=== PATIENT | female | born 1960 | race Caucasian/White ===

== ENCOUNTER → 2020-05-05 15:51 | Outpatient (BNVA) | payer MEDICARE, BC, SELFPAY | PROVIDERS: PCP Family Medicine; Visit Provider Emergency Medicine | DX: J06.9 Acute upper respiratory infection, unspecified (principal); J40 Bronchitis, not specified as acute or chronic; J45.901 Unspecified asthma with (acute) exacerbation; Z76.0 Encounter for issue of repeat prescription; G47.00 Insomnia, unspecified; J02.9 Acute pharyngitis, unspecified; R68.89 Other general symptoms and signs | CPT/HCPCS: 87071; 87400; 87635; 87880 ==

== ENCOUNTER → 2020-05-30 09:24 | Outpatient (BNVA) | payer MEDICARE, BC, SELFPAY | PROVIDERS: PCP Family Medicine; Referring Provider Family Medicine; Visit Provider Anesthesiology Pain Medicine | DX: M51.36 Other intervertebral disc degeneration, lumbar region (principal); M47.816 Spondylosis without myelopathy or radiculopathy, lumbar region; G90.50 Complex regional pain syndrome I, unspecified; M54.9 Dorsalgia, unspecified; Z79.891 Long term (current) use of opiate analgesic | CPT/HCPCS: 99205 ==

== ENCOUNTER → 2020-05-31 10:03 | Outpatient (BNVA) | payer MEDICARE, BC, SELFPAY | PROVIDERS: PCP Family Medicine; Visit Provider Family Medicine | DX: E03.9 Hypothyroidism, unspecified (principal); N18.30 Chronic kidney disease, stage 3 unspecified; Z13.220 Encounter for screening for lipoid disorders; Z13.6 Encounter for screening for cardiovascular disorders; F51.04 Psychophysiologic insomnia; F32.9 Major depressive disorder, single episode, unspecified; R56.9 Unspecified convulsions; K21.9 Gastro-esophageal reflux disease without esophagitis; G47.33 Obstructive sleep apnea (adult) (pediatric) | CPT/HCPCS: 80053; 80061; 84443; 85025 ==

== ENCOUNTER → 2020-07-04 08:53 | Outpatient (BNVA) | payer MEDICARE, BC, SELFPAY | PROVIDERS: PCP Family Medicine; Visit Provider Anesthesiology Pain Medicine | DX: M54.9 Dorsalgia, unspecified (principal); G90.50 Complex regional pain syndrome I, unspecified; M51.36 Other intervertebral disc degeneration, lumbar region; M47.816 Spondylosis without myelopathy or radiculopathy, lumbar region | CPT/HCPCS: 99213 ==

== ENCOUNTER → 2020-08-08 17:55 | Outpatient (BNVA) | payer MEDICARE, SELFPAY | PROVIDERS: PCP Family Medicine; Visit Provider Family Medicine | DX: F51.04 Psychophysiologic insomnia (principal); G90.50 Complex regional pain syndrome I, unspecified; N18.31 Chronic kidney disease, stage 3a; R10.11 Right upper quadrant pain; R56.9 Unspecified convulsions | CPT/HCPCS: 80053; 80069; 81003; 82542; 82652; 83550; 85025 ==

== ENCOUNTER → 2020-08-14 09:02 | Outpatient (BNVA) | payer MEDICARE, SELFPAY | PROVIDERS: PCP Family Medicine; Visit Provider Anesthesiology Pain Medicine | DX: G90.50 Complex regional pain syndrome I, unspecified (principal); M47.816 Spondylosis without myelopathy or radiculopathy, lumbar region; M51.36 Other intervertebral disc degeneration, lumbar region; M54.9 Dorsalgia, unspecified; Z79.891 Long term (current) use of opiate analgesic | CPT/HCPCS: 99214 ==

== ENCOUNTER → 2020-09-04 13:44 | Outpatient (BNVA) | payer MEDICARE, SELFPAY | PROVIDERS: PCP Family Medicine; Visit Provider Anesthesiology Pain Medicine | DX: M47.816 Spondylosis without myelopathy or radiculopathy, lumbar region (principal); M54.9 Dorsalgia, unspecified; F17.290 Nicotine dependence, other tobacco product, uncomplicated | CPT/HCPCS: 64493; 64494; 64495; J3490 ==

== ENCOUNTER → 2020-09-19 10:15 | Outpatient (BNVA) | payer MEDICARE, SELFPAY | PROVIDERS: PCP Family Medicine; Visit Provider Anesthesiology Pain Medicine | DX: M54.9 Dorsalgia, unspecified (principal); G90.50 Complex regional pain syndrome I, unspecified; M51.36 Other intervertebral disc degeneration, lumbar region; M47.816 Spondylosis without myelopathy or radiculopathy, lumbar region; F17.290 Nicotine dependence, other tobacco product, uncomplicated; Z79.891 Long term (current) use of opiate analgesic | CPT/HCPCS: 99214 ==

== ENCOUNTER → 2020-09-26 12:54 | Outpatient (BNVA) | payer MEDICARE, SELFPAY | PROVIDERS: PCP Family Medicine; Visit Provider Anesthesiology Pain Medicine | DX: M47.816 Spondylosis without myelopathy or radiculopathy, lumbar region (principal); M54.9 Dorsalgia, unspecified; F17.290 Nicotine dependence, other tobacco product, uncomplicated; Z79.891 Long term (current) use of opiate analgesic | CPT/HCPCS: 64493; 64494; 64495; J3490 ==

== ENCOUNTER → 2020-10-10 08:35 | Outpatient (BNVA) | payer MEDICARE, SELFPAY | PROVIDERS: PCP Family Medicine; Visit Provider Anesthesiology Pain Medicine | DX: M54.9 Dorsalgia, unspecified (principal); G90.50 Complex regional pain syndrome I, unspecified; M51.36 Other intervertebral disc degeneration, lumbar region; M47.816 Spondylosis without myelopathy or radiculopathy, lumbar region; F17.290 Nicotine dependence, other tobacco product, uncomplicated; Z79.891 Long term (current) use of opiate analgesic | CPT/HCPCS: 99214 ==

== ENCOUNTER → 2020-11-01 14:10 | Outpatient (BNVA) | payer MEDICARE, SELFPAY | PROVIDERS: PCP Family Medicine; Visit Provider Anesthesiology Pain Medicine | DX: M47.816 Spondylosis without myelopathy or radiculopathy, lumbar region (principal); M54.9 Dorsalgia, unspecified; F17.290 Nicotine dependence, other tobacco product, uncomplicated | CPT/HCPCS: 64635; 64636; J1030 ==

== ENCOUNTER → 2020-11-08 11:21 | Outpatient (BNVA) | payer MEDICARE, SELFPAY | PROVIDERS: PCP Family Medicine; Visit Provider Family Medicine | DX: E03.9 Hypothyroidism, unspecified (principal); M16.0 Bilateral primary osteoarthritis of hip | CPT/HCPCS: 84443 ==

== ENCOUNTER → 2020-11-15 14:20 | Outpatient (BNVA) | payer MEDICARE, SELFPAY | PROVIDERS: PCP Family Medicine; Visit Provider Anesthesiology Pain Medicine | DX: M47.816 Spondylosis without myelopathy or radiculopathy, lumbar region (principal); M54.9 Dorsalgia, unspecified; F17.290 Nicotine dependence, other tobacco product, uncomplicated; Z79.891 Long term (current) use of opiate analgesic | CPT/HCPCS: 64635; 64636 ==

== ENCOUNTER → 2021-02-12 14:00 | Outpatient (BNVA) | payer MEDICARE, SELFPAY | PROVIDERS: PCP Family Medicine; Visit Provider Family Medicine | DX: F51.04 Psychophysiologic insomnia (principal); F32.9 Major depressive disorder, single episode, unspecified; R56.9 Unspecified convulsions; K21.9 Gastro-esophageal reflux disease without esophagitis; N18.30 Chronic kidney disease, stage 3 unspecified; D64.9 Anemia, unspecified; G90.50 Complex regional pain syndrome I, unspecified; J44.9 Chronic obstructive pulmonary disease, unspecified; E03.9 Hypothyroidism, unspecified; Z13.6 Encounter for screening for cardiovascular disorders | CPT/HCPCS: 80053; 80061; 84439; 84443; 84481; 85025 ==

== ENCOUNTER → 2021-04-19 09:27 | Outpatient (BNVA) | payer MEDICARE, SELFPAY | PROVIDERS: PCP Family Medicine; Visit Provider Family Medicine | DX: Z12.39 Encounter for other screening for malignant neoplasm of breast (principal); M25.572 Pain in left ankle and joints of left foot; M16.0 Bilateral primary osteoarthritis of hip; N18.30 Chronic kidney disease, stage 3 unspecified; F51.04 Psychophysiologic insomnia; G90.50 Complex regional pain syndrome I, unspecified; E03.9 Hypothyroidism, unspecified | CPT/HCPCS: 80069; 82043; 82310; 83970; 84439; 84443; 84481; 85025 ==

== ENCOUNTER 2021-05-04 13:26 | Outpatient (CLI) | payer MEDICARE, SELFPAY ==
--- NOTE | 2021-05-04 13:37 | XR_ITS ---
WS: [email or web address] Left ankle, 3 views, 05/04/2021 Clinical Data: M25.572 - Pain in left ankle and joints of left foot Comparison: None. Findings: There is osteoarthritic change of the left ankle with narrowing and sclerosis of the joint space. The re is osteoarthritic change of the medial and lateral malleolar adjacent to the talus. The patient is had a fusion of the tarsal bones with multiple orthopedic screws. No recent fractures are seen. There is a 2.2 cm calcification posterior to the ankle mortise. There is soft tissue swelling over th e medial and lateral malleoli. XR/XR ankle LT min 3V* [id number] Impression: 1. Severe osteoarthritis of the left ankle. 2. Complex orthopedic fusion with multiple screws of the tarsal bones. 3. Soft tissue swelling over the medial and lateral malleolus.
--- NOTE | 2021-05-04 13:37 | XR_ITS ---
WS: [email or web address] Bilateral hips, AP and frog leg views, 05/04/2021 Clinical Data: M16.0 - Bilateral primary osteoarthritis of hip Comparison: None. Findings: Right hip: There is a prominent acetabular lip. No narrowing, sclerosis or erosion of the right hip is seen. The re is an intramedullary cary seen in the proximal right femur fixed with a transverse pin. No fracture s or dislocations are seen. The adjacent pelvis shows no abnormalities. The soft tissues are normal. Left hip: There is a prominent acetabular lip. No narrowing, sclerosis or erosion of the left hip is seen. Ther e are no fractures or dislocations. The adjacent left pelvis is unremarkable. The soft tissues are no [facility] XR/XR hip BI 3-4V wo/w pel [id number] Impression: Moderate bilateral osteoarthritic acetabular lipping.
== END 2021-05-04 13:27 | disposition home or self-care (01) ==
PROVIDERS: PCP Family Medicine; Visit Provider Family Medicine
DX: M16.0 Bilateral primary osteoarthritis of hip (principal); M79.89 Other specified soft tissue disorders; M19.072 Primary osteoarthritis, left ankle and foot
CPT/HCPCS: 73522; 73610

== ENCOUNTER → 2021-06-26 14:17 | Outpatient (BNVA) | payer MEDICARE, SELFPAY | PROVIDERS: PCP Family Medicine; Referring Provider Family Medicine; Visit Provider Podiatrist Foot & Ankle Surgery | DX: M25.572 Pain in left ankle and joints of left foot (principal); M19.272 Secondary osteoarthritis, left ankle and foot; Z98.1 Arthrodesis status | CPT/HCPCS: 73610 ==

== ENCOUNTER → 2021-07-05 08:44 | Outpatient (BNVA) | payer MEDICARE, SELFPAY | PROVIDERS: PCP Family Medicine; Visit Provider Anesthesiology Pain Medicine | DX: M51.36 Other intervertebral disc degeneration, lumbar region (principal); M47.816 Spondylosis without myelopathy or radiculopathy, lumbar region; M25.551 Pain in right hip; M25.572 Pain in left ankle and joints of left foot; U07.0 Vaping-related disorder | CPT/HCPCS: 99214 ==

== ENCOUNTER 2021-08-13 12:46 | Outpatient (CLI) | payer MEDICARE, SELFPAY ==
--- NOTE | 2021-08-13 13:30 | MM_ITS ---
WS: [email or web address] BILATERAL SCREENING DIGITAL MAMMOGRAM WITH CAD HISTORY: Screening exam. COMPARISON: 10/07/2018, 07/29/2017 Bilateral CC and MLO views submitted. Computer aided detection analyzed. Breast composition: Scattered nodules and calcifications are stable. No suspicious calcifications. No mass. No suspicious masses, microcalcifications or architectural distortion. Well-circumscribed dege nerating fibroadenoma in the central RIGHT breast. MM/[place] [id number] IMPRESSION: BI-RADS: 2-Benign FOLLOW UP: 1 Year Follow-up
== END 2021-08-13 12:47 | disposition home or self-care (01) ==
LOC: RADSHAW 12:53
PROVIDERS: PCP Family Medicine; Visit Provider Family Medicine
DX: Z12.31 Encounter for screening mammogram for malignant neoplasm of breast (principal)
CPT/HCPCS: 77067

== ENCOUNTER 2021-09-03 14:12 | Outpatient (CLI) | payer MEDICARE, SELFPAY ==
--- NOTE | 2021-09-03 14:18 | XR_ITS ---
WS: [email or web address] SCREENING DEXA SCAN mobintent CLINICAL INFORMATION: Z13.820 - Encounter for screening for osteoporosis COMPARISON: None. FINDINGS: The L1-L4 bone mineral density measures 1.345 g/cm2. This corresponds to a T score score of 1.4 and Z score of 1.5. Left femoral neck bone mineral density measures 0.840 g/cm2. This corresponds to a T score of -1.3 an d Z score of -1.2. Right femoral neck bone mineral density measures 0.833 g/cm2. This corresponds to a T score -1.4of an d Z score of -1.3. Mean femoral neck bone mineral density measures 0.836 g/cm2. This corresponds to a T score of -1.4 an d Z score of -1.2. XR/XR DEXA axial skeleton* [id number] IMPRESSION: Osteopenia in the femoral necks. Normal bone mineralization in the lumbar spine likely spuriously elevated due to endplate sclerosis. Patient's FRAX calculated 10 year probability for major osteoporotic fracture i s 9.8 % and osteoporotic hip fracture is 0.6%.
== END 2021-09-03 14:13 | disposition home or self-care (01) ==
LOC: RAD 14:16
PROVIDERS: PCP Family Medicine; Visit Provider Family Medicine
DX: Z13.820 Encounter for screening for osteoporosis (principal); Z78.0 Asymptomatic menopausal state; M85.88 Other specified disorders of bone density and structure, other site
CPT/HCPCS: 77080

== ENCOUNTER 2021-09-20 10:50 | Outpatient (CLI) | payer MEDICARE, SELFPAY ==
--- NOTE | 2021-09-20 11:01 | US_ITS ---
WS: [email or web address] RENAL ULTRASOUND HISTORY: PARTIAL NEPHRECTOMY COMPARISON: None available. TECHNIQUE: 2-D and color Doppler imaging of the kidney submitted. Right kidney: 9.2 cm x 4.6 cm x 5.4 cm. Poorly visualized due to body habitus. No mass or hydronephrosis identified. No cortical thinning. Left kidney: 10.3 cm x 4.0 cm x 4.1 cm. Limited by body habitus. No abnormality detected. No hydronephrosis. No mass. Aorta: Not imaged. Urinary Bladder: Normal distention. US/US renal BI* [id number] IMPRESSION: 1. Technically limited evaluation of the kidneys due to body habitus. 2. No hydronephrosis or mass identified.
== END 2021-09-20 10:51 | disposition home or self-care (01) ==
PROVIDERS: PCP Family Medicine; Visit Provider Nurse Practitioner Family
DX: Z90.5 Acquired absence of kidney (principal)
CPT/HCPCS: 76770

== ENCOUNTER → 2021-10-10 15:21 | Outpatient (BNVA) | payer MEDICARE, SELFPAY | PROVIDERS: PCP Family Medicine; Visit Provider Family Medicine | DX: M85.80 Other specified disorders of bone density and structure, unspecified site (principal); E03.9 Hypothyroidism, unspecified; Z13.1 Encounter for screening for diabetes mellitus; R73.9 Hyperglycemia, unspecified; N18.30 Chronic kidney disease, stage 3 unspecified | CPT/HCPCS: 80048; 82652; 83036; 84439; 84443; 84481 ==

== ENCOUNTER → 2022-01-09 13:52 | Outpatient (BNVA) | payer MEDICARE, SELFPAY | PROVIDERS: PCP Family Medicine; Visit Provider Family Medicine | DX: E03.9 Hypothyroidism, unspecified (principal); N18.30 Chronic kidney disease, stage 3 unspecified | CPT/HCPCS: 80048; 84439; 84443; 84481 ==

== ENCOUNTER → 2022-02-20 09:12 | Outpatient (BNVA) | payer MEDICARE, SELFPAY | PROVIDERS: PCP Family Medicine; Visit Provider Family Medicine | DX: G90.50 Complex regional pain syndrome I, unspecified (principal); N18.30 Chronic kidney disease, stage 3 unspecified; J44.9 Chronic obstructive pulmonary disease, unspecified; E03.9 Hypothyroidism, unspecified; F51.04 Psychophysiologic insomnia; D64.9 Anemia, unspecified; R56.9 Unspecified convulsions; K21.9 Gastro-esophageal reflux disease without esophagitis; G47.33 Obstructive sleep apnea (adult) (pediatric); G47.10 Hypersomnia, unspecified; F33.0 Major depressive disorder, recurrent, mild; M51.36 Other intervertebral disc degeneration, lumbar region; M47.816 Spondylosis without myelopathy or radiculopathy, lumbar region | CPT/HCPCS: 80048; 84443; 85025 ==

== ENCOUNTER → 2022-02-27 09:23 | Outpatient (BNVA) | payer MEDICARE, SELFPAY | PROVIDERS: PCP Family Medicine; Visit Provider Anesthesiology Pain Medicine | DX: M25.551 Pain in right hip (principal); F17.290 Nicotine dependence, other tobacco product, uncomplicated; G90.50 Complex regional pain syndrome I, unspecified; M51.36 Other intervertebral disc degeneration, lumbar region; M47.816 Spondylosis without myelopathy or radiculopathy, lumbar region | CPT/HCPCS: 99214 ==

== ENCOUNTER 2022-03-28 06:00 | Outpatient (RCR) | payer MEDICARE, SELFPAY | END 2022-04-12 23:59 | disposition home or self-care (01) | LOC: MPT 06:00 | PROVIDERS: PCP Family Medicine; Visit Provider Anesthesiology Pain Medicine | DX: M54.50 Low back pain, unspecified (principal); G89.29 Other chronic pain | CPT/HCPCS: 97110; 97140; 97162 ==

== ENCOUNTER 2022-04-13 06:00 | Outpatient (RCR) | payer MEDICARE, SELFPAY | END 2022-05-13 23:59 | disposition home or self-care (01) | LOC: MPT 06:00 | PROVIDERS: PCP Family Medicine; Visit Provider Anesthesiology Pain Medicine | DX: M54.50 Low back pain, unspecified (principal); G89.29 Other chronic pain | CPT/HCPCS: 97110; 97140 ==

== ENCOUNTER 2022-05-16 13:44 | Outpatient (CLI) | payer MEDICARE, SELFPAY ==
--- NOTE | 2022-05-16 14:00 | CT_ITS ---
WS: [email or web address] CT LUMBAR SPINE TECHNIQUE: Noncontrast CT of the lumbar spine with coronal and sagittal reformatted images. CLINICAL INFORMATION: M54.16 - Radiculopathy, lumbar region COMPARISON: None. DLP: 6.[address] scans at [facility] use at least one of these dose optimization techniques: automated e xposure control; mA and/or kV adjustment per patient size (includes targeted exams where dose is matc hed to clinical indication); or iterative reconstruction. FINDINGS: Mild lumbar curve. No acute compression. Spinal stimulator extending cephalad off the [id number]. Disc space narrowing worse at L2-L3 L3-L4 and L4-L5 with vacuum disc phenomenon. Endplate degenerativ e changes. Osteopenia. L1-L2: Small LEFT foraminal protrusion. Mild LEFT foraminal narrowing. Mild facet arthropathy. RIGHT foramen is patent. L2-L3: Disc space narrowing with endplate degenerative changes. Moderate facet arthropathy. Mild bila teral bony foraminal narrowing LEFT greater than RIGHT. Moderate facet arthropathy. L3-L4: Disc osteophytic ridging. Vacuum disc phenomenon. Moderate facet arthropathy. Mild RIGHT and n o significant LEFT foraminal narrowing. L4-L5: Vacuum disc phenomenon. Mild disc bulging and osteophytic ridging. Advanced facet arthropathy. Shallow LEFT pericentral protrusion. Impingement on traversing LEFT L5 nerve root with mild central canal stenosis. Moderate RIGHT foraminal narrowing with impingement on the exiting RIGHT L4 nerve david t. Mild LEFT foraminal narrowing. L5-S1: Mild disc osteophytic ridging. Spinal canal is patent. Mild LEFT foraminal narrowing. RIGHT fo ramen is patent. Advanced facet arthropathy. Postoperative changes gastric bypass. Prior cholecystectomy. Small LEFT adrenal adenoma. CT/CT lumbar spine wo con* [id number] IMPRESSION: 1. Mild lumbar curve. No acute compression. Disc space narrowing L2-L3 L3-L4 L 4-L5 with vacuum disc phenomenon. 2. Mild central canal stenosis L4-L5 with a tiny LEFT pericentral protrusion. Impingement traversing LEFT L5 nerve root. 3. Moderate RIGHT L4-L5 foraminal narrowing impinges the exiting RIGHT L4 nerv e root. Recommend correlation for RIGHT L4 nerve root symptoms. 4. Mild LEFT L2-L3 and RIGHT L3-L4 foraminal narrowing. 5. Advanced facet arthropathy L4-L5 and L5-S1.
== END 2022-05-16 13:45 | disposition home or self-care (01) ==
PROVIDERS: PCP Family Medicine; Visit Provider Anesthesiology Pain Medicine
DX: M54.16 Radiculopathy, lumbar region (principal); M48.061 Spinal stenosis, lumbar region without neurogenic claudication; M47.816 Spondylosis without myelopathy or radiculopathy, lumbar region; M47.817 Spondylosis without myelopathy or radiculopathy, lumbosacral region; M51.26 Other intervertebral disc displacement, lumbar region
CPT/HCPCS: 72131

== ENCOUNTER → 2022-06-17 09:27 | Outpatient (BNVA) | payer MEDICARE, SELFPAY | PROVIDERS: PCP Family Medicine; Visit Provider Anesthesiology Pain Medicine | DX: M51.36 Other intervertebral disc degeneration, lumbar region (principal); M47.816 Spondylosis without myelopathy or radiculopathy, lumbar region; G90.50 Complex regional pain syndrome I, unspecified; M79.604 Pain in right leg; M79.605 Pain in left leg; M25.559 Pain in unspecified hip | CPT/HCPCS: 99214 ==

== ENCOUNTER 2022-07-26 07:38 | Outpatient (CLI) | payer MEDICARE, SELFPAY ==
--- NOTE | 2022-07-26 08:00 | CT_ITS ---
WS: [email or web address] CT NECK TECHNIQUE: Noncontrast CT of the neck with coronal and sagittal reformatted images. CLINICAL INFORMATION: R22.1 - Localized swelling, mass and lump, neck COMPARISON: None. DLP: 377.[address] scans at [facility] use at least one of these dose optimization techniques: automated e xposure control; mA and/or kV adjustment per patient size (includes targeted exams where dose is matc hed to clinical indication); or iterative reconstruction. FINDINGS: Palpable marker LEFT lower neck. No abnormal mass or lesion deep to the palpable marker. Parotid glands are normal. Submandibular glands are normal. Mastoid air cells are well aerated. Reten tion cyst RIGHT maxillary sinus measuring 1.6 cm. Normal parapharyngeal fat. No evidence of supraglot tic or glottic mass. Subglottic airway is patent. Lung apices are well aerated. Cervical curve. Moder ate spondylitic changes cervical spine. Ossification posterior longitudinal ligament with moderate ce ntral canal stenosis C2-C4. CT/CT neck wo con [id number] IMPRESSION: 1. Palpable marker LEFT lower neck. No underlying abnormalities in this area. 2. Normal salivary glands. 3. No cervical lymphadenopathy. 4. Moderate spondylitic changes cervical spine with ossification posterior rickie gitudinal ligament. Moderate central canal stenosis C2-C4
== END 2022-07-26 07:39 | disposition home or self-care (01) ==
LOC: RAD 07:42
PROVIDERS: PCP Family Medicine; Visit Provider Emergency Medicine
DX: R22.1 Localized swelling, mass and lump, neck (principal); E03.9 Hypothyroidism, unspecified; M48.8X2 Other specified spondylopathies, cervical region; M48.02 Spinal stenosis, cervical region
CPT/HCPCS: 70490

== ENCOUNTER → 2022-08-08 13:21 | Outpatient (BNVA) | payer MEDICARE, SELFPAY | PROVIDERS: PCP Family Medicine; Visit Provider Anesthesiology Pain Medicine | DX: M47.816 Spondylosis without myelopathy or radiculopathy, lumbar region (principal) | CPT/HCPCS: 64635; 64636; J1030 ==

== ENCOUNTER → 2022-08-29 12:50 | Outpatient (BNVA) | payer MEDICARE, SELFPAY | PROVIDERS: PCP Family Medicine; Visit Provider Anesthesiology Pain Medicine | DX: M54.16 Radiculopathy, lumbar region (principal); M47.816 Spondylosis without myelopathy or radiculopathy, lumbar region | CPT/HCPCS: 64635; 64636; J1030 ==

== ENCOUNTER 2022-09-20 11:49 | Outpatient (CLI) | payer MEDICARE, SELFPAY ==
--- NOTE | 2022-09-20 12:02 | MM_ITS ---
WS: [email or web address] BILATERAL 3D TOMOSYNTHESIS DIGITAL SCREENING MAMMOGRAPHY WITH CAD CLINICAL INFORMATION: SCREEN HISTORY: Screening mammogram. No current complaints. COMPARISON: August 13, 2021 TECHNIQUE: Bilateral CC and MLO views. FINDINGS: Scattered fibroglandular densities bilaterally. No suspicious focal mass, asymmetry, calcifications, or architectural distortion. No evidence of malignancy. Stable calcified fibroadenoma RIGHT breast. A few incidental punctate calcifications. MM/[place] [id number] IMPRESSION: BI-RADS: 2-Benign FOLLOW UP: 1 Year Follow-up Recommend return to annual screening mammography.
== END 2022-09-20 11:50 | disposition home or self-care (01) ==
PROVIDERS: PCP Family Medicine; Visit Provider Family Medicine
DX: Z12.31 Encounter for screening mammogram for malignant neoplasm of breast (principal)
CPT/HCPCS: 77063; 77067

== ENCOUNTER → 2022-10-02 14:26 | Outpatient (BNVA) | payer MEDICARE, SELFPAY | PROVIDERS: PCP Family Medicine; Visit Provider Family Medicine | DX: F51.04 Psychophysiologic insomnia (principal); F32.9 Major depressive disorder, single episode, unspecified; E03.9 Hypothyroidism, unspecified; R56.9 Unspecified convulsions; K21.9 Gastro-esophageal reflux disease without esophagitis; G90.50 Complex regional pain syndrome I, unspecified; N18.30 Chronic kidney disease, stage 3 unspecified; Z13.220 Encounter for screening for lipoid disorders; Z13.6 Encounter for screening for cardiovascular disorders; M51.36 Other intervertebral disc degeneration, lumbar region; M54.2 Cervicalgia | CPT/HCPCS: 80053; 80061; 84443 ==

== ENCOUNTER → 2022-10-03 11:00 | Outpatient (BNVA) | payer MEDICARE, SELFPAY | PROVIDERS: PCP Family Medicine; Visit Provider Anesthesiology Pain Medicine | DX: M47.816 Spondylosis without myelopathy or radiculopathy, lumbar region (principal); M51.36 Other intervertebral disc degeneration, lumbar region; M25.559 Pain in unspecified hip; G90.50 Complex regional pain syndrome I, unspecified | CPT/HCPCS: 99213 ==

== ENCOUNTER → 2022-11-18 10:21 | Outpatient (BNVA) | payer MEDICARE, SELFPAY | PROVIDERS: PCP Family Medicine; Visit Provider Internal Medicine | DX: N18.31 Chronic kidney disease, stage 3a (principal) | CPT/HCPCS: 80069; 82306; 82310; 82570; 83970; 84156; 85025 ==

== ENCOUNTER → 2023-03-10 13:36 | Outpatient (BNVA) | payer MEDICARE, SELFPAY | PROVIDERS: PCP Family Medicine; Visit Provider Family Medicine | DX: G90.50 Complex regional pain syndrome I, unspecified (principal); K21.9 Gastro-esophageal reflux disease without esophagitis; F51.04 Psychophysiologic insomnia; R56.9 Unspecified convulsions; E03.9 Hypothyroidism, unspecified; F32.9 Major depressive disorder, single episode, unspecified; N18.30 Chronic kidney disease, stage 3 unspecified; J44.9 Chronic obstructive pulmonary disease, unspecified; D64.9 Anemia, unspecified; R41.3 Other amnesia; N18.31 Chronic kidney disease, stage 3a; Z87.820 Personal history of traumatic brain injury; M51.36 Other intervertebral disc degeneration, lumbar region; F33.0 Major depressive disorder, recurrent, mild; F41.1 Generalized anxiety disorder; I10 Essential (primary) hypertension | CPT/HCPCS: 80053; 82607; 83540; 84439; 84443; 84481; 85025 ==

== ENCOUNTER → 2023-06-02 13:27 | Outpatient (BNVA) | payer MEDICARE, SELFPAY | PROVIDERS: PCP Family Medicine; Visit Provider Family Medicine | DX: G90.50 Complex regional pain syndrome I, unspecified (principal); E03.9 Hypothyroidism, unspecified; N18.30 Chronic kidney disease, stage 3 unspecified; D64.9 Anemia, unspecified; M54.2 Cervicalgia; M51.36 Other intervertebral disc degeneration, lumbar region; R41.3 Other amnesia; Z87.820 Personal history of traumatic brain injury; R03.0 Elevated blood-pressure reading, without diagnosis of hypertension | CPT/HCPCS: 80048; 83540; 84439; 84443; 84481 ==

== ENCOUNTER → 2023-07-21 10:44 | Outpatient (BNVA) | payer MEDICARE, SELFPAY | PROVIDERS: PCP Family Medicine; Referring Provider Family Medicine; Visit Provider Psychiatry & Neurology Neurology | DX: R55 Syncope and collapse (principal); R41.3 Other amnesia | CPT/HCPCS: 99203 ==

== ENCOUNTER 2023-07-31 08:06 | Outpatient (CLI) | payer MEDICARE, SELFPAY ==
--- NOTE | 2023-07-31 08:14 | FL_ITS ---
WS: [email or web address] Exam: FL barium swallow [id number] Date/Time of Exam: 07/31/2023 9:43 AM Reason For Exam: LOCALIZED SWELLING,MASS, LUMP,NECK/OTHER DYSPHAGIA Fluoroscopy time: 1min [id number] minutes # of spot films: Oropharyngeal phase of swallowing was normal. There is posterior extrinsic compression of the cervica l esophagus at the C5-6 level secondary to prominent anterior osteophytes at this level. There is als o questionable asymmetry of the piriform sinuses the LEFT side being somewhat small. An underlying fi lling defect in this region is not excluded. The esophagus was otherwise patent. No other level of st ricture. Normal esophageal motility. No hiatal hernia or gastroesophageal reflux. Signs of gastric morales rgery. IMPRESSION: 1. Extrinsic posterior compression of the cervical esophagus at the C5-6 level secondary to prominent anterior osteophytes of C5 and C6. 2. Questionable asymmetric piriform sinuses the LEFT side being somewhat small as compared to the RIG HT. An underlying mass could have this appearance. 3. The remainder of the esophagus was unremarkable. Signs of gastric surgery. Recommendations: Further work-up with endoscopy might be a consideration.
--- NOTE | 2023-07-31 08:14 | CT_ITS ---
WS: [email or web address] CT NECK WITH CONTRAST HISTORY: LOCALIZED SWELLING, MASS, LUMP,NECK/OTHER DYSPHAGIA TECHNIQUE: Contiguous 2 mm axial images are performed through the neck with intravenous contrast. Sag ittal and coronal reformats are also submitted. All CT scans at [facility] use at least one o f these dose optimization techniques: automated exposure control; mA and/or kV adjustment per patient size (includes targeted exams where dose is matched to clinical indication); or iterative reconstruc tion. CONTRAST: CONTRAST: Omnipaque 350; 100 mL IV. DLP: 269.16 mGy.cm COMPARISON: 07/26/2022 Marker is placed along the anterior LEFT neck at the site of the palpable abnormality. This is a very similar position as the prior exam from 07/26/2022. There is no underlying mass or significant adenop athy identified. Normal appearance of the soft tissues. There are a few small benign-appearing lymph nodes along the cervical chain. Normal sternocleidomastoid muscle. There is asymmetric soft tissue thickening involving the larynx. There is mild enhancement and soft t issue thickening along the LEFT posterior pharyngeal wall at the level of the aryepiglottic fold. Sof t tissue thickening and enhancement extends up across the midline along the posterior pharyngeal wall . Abnormal soft tissue measures at least 2.6 cm x 1.2 cm. Thyroid gland and salivary glands are normally enhancing with no masses. Advanced degenerative spondylitic changes in the cervical spine. Visualized portions of the skull base demonstrate no abnormalities. Orbits and globes are within norm al limits. No soft tissue masses. Visualized paranasal sinuses and mastoid air cells are normal. Mild groundglass attenuation at the lung apices. IMPRESSION: 1. Asymmetrically thickened soft tissue with enhancement involving the posterior LEFT pharyngeal wal l extending across the midline into the RIGHT aryepiglottic fold. Mild asymmetry of the larynx at thi s level. Recommend direct visualization to exclude neoplasm. 2. At the site of the palpable marker along the LEFT lateral neck no underlying soft tissue abnormal ity. 3. No cervical chain lymphadenopathy.
--- NOTE | 2023-07-31 08:30 | CT_ITS ---
WS: [email or web address] CT HEAD NONCONTRAST HISTORY: R55 - Syncope and collapse TECHNIQUE: Contiguous axial imaging performed through the brain in 2.5 mm imaging. Bone and soft tiss ue windows. Sagittal and coronal reformats reviewed. All CT scans at [facility] use at least one of these dose optimization techniques: automated exposure control; mA and/or kV adjustment per pa tient size (includes targeted exams where dose is matched to clinical indication); or iterative recon struction. DLP: 1085.45 mGy.cm COMPARISON: None available. No acute intracranial hemorrhage, midline shift or mass effect. Mild bilateral symmetric frontal lobe atrophy. Otherwise brain is well preserved. No prior infarcts. Temporal lobes are normal. Ventricles: Normal size with no hydrocephalus. Paranasal sinuses: As visualized are clear. Mastoid air cells: Well pneumatized. Calvarium and scalp: Skull is intact with no soft tissue edema or swelling. IMPRESSION: 1. No acute intracranial hemorrhage or edema. 2. No prior infarct. 3. Mild bilateral frontal lobe atrophy.
--- NOTE | 2023-07-31 08:30 | USCV_ITS ---
Purnima Sewell Age: 62 Gender: F : 1960 Exam Date: 07/31/2023 09:00 Ordering Phys: Toño Ochoa MD Technologist: DEV Exam Location: [facility] [place] Indication: Syncope and Collapse Risk Factors: Previous Vascular Surgery: Right Brachial BP: / Left Brachial BP: / Right Left Velocity (cm/s) Spectral Plaque Velocity (cm/s) Spectral Plaque Syst/Diast Broadening Syst/Diast Broadening 104.00/22.90 Prox CCA 78.80 / 20.00 106.10/37.50 Mid CCA 89.30 / 36.00 82.20/ 32.20 Distal CCA 84.30 / 29.80 78.20/ 22.60 Prox ICA 52.40 / 21.10 57.70/ 20.50 Mid ICA 53.00 / 21.10 75.00/ 20.90 Distal ICA 82.00 / 39.30 86.30 ECA 90.90 0.74 ICA/CCA 0.92 Antegrade Vertebral Antegrade 72.80/ 28.70 cm/s 73.50/ 32.50 cm/s Tri Subclavian Tri 168.3 93.30 0 FINDINGS Comparison: none available. No significant elevation of systolic or diastolic velocities. Waveforms are normal. Mixture of calcified and noncalcified plaque in the bifurcations. Antegrade vertebral arteries. CONCLUSIONS Bilateral ICA stenosis less than 50%. Mild carotid atherosclerosis. Dr. Maura Keyes DO (Electronically Signed) Final Date: 31 July 2023 10:32 S
[2023-07-31 09:24] LABS: Blood Urea Nitrogen 20 mg/dL (8-23); Glomerular Filtration Rate 45.5 mL/min (90-130)
[2023-07-31] MEDS: iohexol 350 mg/mL 500 mL Btl (per mL) IV (09:41)
== END 2023-07-31 08:07 | disposition home or self-care (01) ==
LOC: RAD 08:06
PROVIDERS: PCP Family Medicine; Visit Provider Specialist
DX: R22.1 Localized swelling, mass and lump, neck (principal); R55 Syncope and collapse; R13.10 Dysphagia, unspecified; R41.3 Other amnesia; I65.23 Occlusion and stenosis of bilateral carotid arteries; G31.89 Other specified degenerative diseases of nervous system
CPT/HCPCS: 70450; 70491; 74220; 82565; 84520; 93880; Q9967

== ENCOUNTER → 2023-08-14 13:44 | Outpatient (BNVA) | payer MEDICARE, SELFPAY | PROVIDERS: PCP Family Medicine; Visit Provider Family Medicine | DX: Z01.818 Encounter for other preprocedural examination (principal); E03.9 Hypothyroidism, unspecified; D64.9 Anemia, unspecified; N18.30 Chronic kidney disease, stage 3 unspecified; Z13.220 Encounter for screening for lipoid disorders; Z13.6 Encounter for screening for cardiovascular disorders; Z01.812 Encounter for preprocedural laboratory examination; R41.3 Other amnesia | CPT/HCPCS: 93005 ==

== ENCOUNTER → 2023-08-14 15:31 | Outpatient (BNVA) | payer MEDICARE, SELFPAY | PROVIDERS: PCP Family Medicine; Visit Provider Family Medicine | DX: Z01.818 Encounter for other preprocedural examination (principal); E03.9 Hypothyroidism, unspecified; D64.9 Anemia, unspecified; N18.30 Chronic kidney disease, stage 3 unspecified; Z13.220 Encounter for screening for lipoid disorders; Z13.6 Encounter for screening for cardiovascular disorders; R41.3 Other amnesia; Z01.812 Encounter for preprocedural laboratory examination | CPT/HCPCS: 80048; 80061; 83540; 84439; 84443; 84481; 85025; 93005 ==

== ENCOUNTER → 2023-08-26 15:07 | Outpatient (BNVA) | payer MEDICARE, SELFPAY | PROVIDERS: PCP Family Medicine; Referring Provider Family Medicine; Visit Provider Orthopaedic Surgery | DX: M54.41 Lumbago with sciatica, right side (principal); M54.42 Lumbago with sciatica, left side; Z96.82 Presence of neurostimulator | CPT/HCPCS: 72100; 99203 ==

== ENCOUNTER → 2023-08-27 13:29 | Outpatient (BNVA) | payer MEDICARE, SELFPAY | PROVIDERS: PCP Family Medicine; Referring Provider Psychiatry & Neurology Neurology; Visit Provider Internal Medicine Cardiovascular Disease | DX: N18.30 Chronic kidney disease, stage 3 unspecified (principal); D64.9 Anemia, unspecified | CPT/HCPCS: 99203 ==

== ENCOUNTER → 2023-09-08 12:48 | Outpatient (BNVA) | payer MEDICARE, SELFPAY | PROVIDERS: PCP Family Medicine; Visit Provider Podiatrist Foot & Ankle Surgery | DX: M19.172 Post-traumatic osteoarthritis, left ankle and foot; M25.372 Other instability, left ankle; S99.912D Unspecified injury of left ankle, subsequent encounter; W19.XXXD Unspecified fall, subsequent encounter; M21.41 Flat foot [pes planus] (acquired), right foot; M21.42 Flat foot [pes planus] (acquired), left foot; N18.30 Chronic kidney disease, stage 3 unspecified; D64.9 Anemia, unspecified | CPT/HCPCS: 73610; 99213 ==

== ENCOUNTER → 2023-09-16 15:06 | Outpatient (BNVA) | payer MEDICARE, SELFPAY | PROVIDERS: PCP Family Medicine; Visit Provider Psychiatry & Neurology Neurology | DX: R56.9 Unspecified convulsions (principal); R55 Syncope and collapse; R41.3 Other amnesia; N18.30 Chronic kidney disease, stage 3 unspecified | CPT/HCPCS: 80069; 82306; 82310; 82570; 83970; 84156; 85025; 95813 ==

== ENCOUNTER → 2023-09-29 13:49 | Outpatient (BNVA) | payer MEDICARE, SELFPAY | PROVIDERS: PCP Family Medicine; Visit Provider Psychiatry & Neurology Neurology | DX: R55 Syncope and collapse (principal); R41.3 Other amnesia | CPT/HCPCS: 99212 ==

== ENCOUNTER → 2023-10-02 10:53 | Outpatient (BNVA) | payer MEDICARE, SELFPAY | PROVIDERS: PCP Family Medicine; Referring Provider Nurse Practitioner Family; Visit Provider Family Medicine | DX: N18.30 Chronic kidney disease, stage 3 unspecified (principal) | CPT/HCPCS: 80069; 82310; 82570; 82652; 83970; 84156; 85025 ==

== ENCOUNTER 2023-12-16 12:37 | Oncology outpatient (recurring) (ONCR) | payer MEDICARE, SELFPAY ==
[2023-12-16 14:22] LABS: Basophils % 0.6 %; Eosinophils # 0.2 10^3/uL (0.0-0.8); Eosinophils % 2.5 %; Hematocrit 35.2 % (36-47); Lymphocytes # 1.6 10^3/uL (0.8-4.8); Lymphocytes % 22.9 %; Mean Corpuscular HGB Conc 31.5 g/dL (30-55); Mean Corpuscular Volume 98.3 fl (85-98); Mean Platelet Volume 10.3 fL (7.4-10.4); Monocytes # 0.5 10^3/uL (0.2-0.9); Monocytes % 7.7 %; Neutrophils # 4.47 10^3/uL (1.8-7.7); Neutrophils % 65.9 %; Nucleated Red Blood Cells % 0 %; Platelet Count 222 10^3/cmm (157-399); Red Blood Count 3.58 10^6/uL (3.85-5.65); Red Cell Distribution Width 15.7 % (12.1-15.1); White Blood Count 6.78 10^3/uL (3.29-11.43)
[2023-12-16 14:25] LABS: LAB Peripheral Smear Sent for Review
[2023-12-16 14:26] LABS: Erythrocyte Sedimentation Rate 2 mm/hr (0-15)
[2023-12-16 14:54] LABS: HIV 1 & 2 Antibody Non-Reactive (Non-Reactiv); HIV 1 & 2 Antigen Non-Reactive (Non-Reactiv)
[2023-12-16 15:00] LABS: Folate Level 12.1 ng/mL (4.8-37.3)
[2023-12-16 15:00] LABS: Alanine Aminotransferase 16 U/L (0-33); Alkaline Phosphatase 117 U/L (35-105); Anion Gap 11.3 (5-19); Aspartate Amino Transferase 16 U/L (0-32); Blood Urea Nitrogen 27 mg/dL (8-23); Calcium 8.7 mg/dL (8.5-10.5); Carbon Dioxide 27 mmol/L (22-29); Chloride 107 mmol/L (98-107); Ferritin 30 ng/mL (15-150); Globulin 2.7 g/dL (1.3-4.6); Glucose 88 mg/dL (65-115); Iron 65 ug/dL (37-145); Lactate Dehydrogenase 206 U/L (135-214); Osmolality Calculated 297 mOsm/kg (285-295); Percent Saturation 18.7 % (20-50); Potassium 4.3 mmol/L (3.5-5.1); Sodium 141 mmol/L (136-145); Thyroid Stimulating Hormone 0.03 uIU/mL (0.27-4.20); Total Bilirubin 0.2 mg/dL (0.15-1.2); Total Iron Binding Capacity 347 mcg/dl; Total Protein 6.7 g/dL (6.6-8.7); Unsaturated Iron Binding 282 ug/dL (112-347); Vitamin B12 1076 pg/mL (232-1245)
[2023-12-16 15:01] LABS: Hepatitis A Antibody IgM Non-Reactive (Nonreactive); Hepatitis B Core AB, Total Non-Reactive (Nonreactive); Hepatitis B Surface AB 12.6 (11.5-1000); Hepatitis B Surface Antigen Non-Reactive (Nonreactive); Hepatitis C Virus Antibody Non-Reactive (Nonreactive)
[2023-12-16 15:34] LABS: Free T4 Free Thyroxine 1.39 ng/dL (0.82-1.77)
[2023-12-17 17:24] LABS: PROTEIN, TOTAL 6.2 g/dL (6.1-8.1)
[2023-12-18 09:00] LABS: ALBUMIN 3.6 g/dL (3.8-4.8); ALPHA 1 GLOBULIN 0.4 g/dL (0.2-0.3); ALPHA 2 GLOBULIN 0.7 g/dL (0.5-0.9); BETA 1 GLOBULIN 0.5 g/dL (0.4-0.6); BETA 2 GLOBULIN 0.3 g/dL (0.2-0.5); GAMMA GLOBULIN 0.7 g/dL (0.8-1.7)
[2023-12-18 12:20] LABS: Copper Level 118 mcg/dL (70-175); Zinc Level, Serum or Plasma 56 mcg/dL (60-130)
[2023-12-20 10:09] LABS: Methylmalonic Acid 184 nmol/L (87-318)
== END 2024-01-11 23:59 | disposition home or self-care (01) ==
PROVIDERS: Internal Medicine; PCP Family Medicine; Visit Provider Internal Medicine Medical Oncology
DX: Z53.9 Procedure and treatment not carried out, unspecified reason (principal); D64.9 Anemia, unspecified; N18.30 Chronic kidney disease, stage 3 unspecified; F33.0 Major depressive disorder, recurrent, mild
CPT/HCPCS: 36415; 80053; 80503; 82525; 82607; 82728; 82746; 83010; 83540; 83550; 83615; 83921; 84155; 84165; 84238; 84439; 84443; 84630; 85025; 85045; 85651; 86140; 86705; 86706; 86709; 86803; 87340; 87806; 99203

== ENCOUNTER 2023-12-19 11:19 | Outpatient (CLI) | payer MEDICARE, SELFPAY ==
[2023-12-21 14:25] LABS: PROTEIN, TOTAL, 24 HR UR NOTE mg/24 h (<150); Protein/Creatinine Ratio NOTE (<0.150); Protein/Creatinine Ratio NOTE mg/g creat (<150)
[2023-12-23 15:44] LABS: ALBUMIN 0 %; ALPHA-1-GLOBULINS 0 %; ALPHA-2-GLOBULINS 0 %; BETA GLOBULINS 0 %; GAMMA GLOBULINS 0 %
== END 2023-12-19 11:20 | disposition home or self-care (01) ==
LOC: LAB 11:21
PROVIDERS: PCP Family Medicine; Visit Provider Internal Medicine
DX: D64.9 Anemia, unspecified (principal)
CPT/HCPCS: 84156; 84166

== ENCOUNTER → 2024-01-02 08:16 | Outpatient (BNVA) | payer MEDICARE, SELFPAY | PROVIDERS: PCP Family Medicine; Referring Provider Internal Medicine; Visit Provider Surgery | DX: D64.9 Anemia, unspecified (principal); K21.9 Gastro-esophageal reflux disease without esophagitis; Z86.19 Personal history of other infectious and parasitic diseases; Z87.11 Personal history of peptic ulcer disease | CPT/HCPCS: 99204 ==

== ENCOUNTER 2024-03-03 09:38 | Day surgery (SDC) | payer MEDICARE, SELFPAY ==
[2024-03-03 10:02] VITALS: BP 124/87; PULSE 95; RESP 16; TEMP 36.6; O2SAT 98; BMI 49.4
[2024-03-03] MEDS: sodium chloride 0.9% 1,000 ML 30 ML IV (10:13)
--- NOTE | 2024-03-03 10:44 | P.ANESASSM_ITS ---
Pre-Anesthetic Assessment Height/Weight: Height 5 ft 2 in Weight 270 lb Temp Pulse Resp BP Pulse Ox O2 Del Method 97.9 F 95 16 124/87 98 Room Air 03/03/24 10:02 03/03/24 10:02 03/03/24 10:02 03/03/24 10:02 03/03/24 10:02 03/03/24 10:02 Operation Date: 03/03/24 11:15 Proposed Procedures p EGD 34142, 84626, G0105, D64.9, D50.9, K21.9, Z86.19, Z87.11(Not Applicable) - Prieto Wilcox DO s Colonoscopy(Not Applicable) - Prieto Wilcox DO Last intake: Intake Last Liquid Date 03/02/24 Last Liquid Time 23:30 Last Solid Date 03/01/24 Last Solid Time 22:00 Social No alcohol and No tobacco Exam alert, oriented x 3, clear to auscultation bilaterally and regular rate & rhythm Airway Submandibular: within normal limits Cervical ROM: within normal limits Mallampati: Class III Comments: Comments: Few missing teeth Pulmonary None reported CV/HEM None reported Prior renal cancer, partial left nephrectomy. Stage III CKD Anesthetic Plan ASA status: 3 Anesthesia: MAC Other: Patient reports multiple incidents as of awareness under anesthesia. Even reports waking up during general anesthesia. Patient completed bowel prep Patient reportedly recently had a dental procedure and states that her gums are very sensitive. Labs reviewed Patient denies cardiac or pulmonary issues Plan for MAC anesthesia Medications/Allergies Home Medications Medication Instructions Recorded Confirmed Last Taken Type mecobalamin (vitamin B12) 1,000 1,000 mcg PO DAILY 05/05/20 03/02/24 03/02/24 History mcg chewable tablet (B12 Active) iron,carbonyl 65 mg-vitamin C 125 1 tab PO DAILY 90 days #90 tabs 02/20/22 03/02/24 03/02/24 Rx mg tablet,delayed release (Vitron-C) MARIJUANA 10/03/22 01/02/24 Unknown History spinal stemulator remote #1 ea 08/26/23 01/02/24 Unknown Rx spinal stimulator remote #1 ea 08/26/23 01/02/24 Unknown Rx non articulating spectrum AFO with #1 ea 09/08/23 01/02/24 Unknown Rx extra depth orthopedic shoes fluoxetine 20 mg capsule (Prozac) 20 mg PO DAILY 90 days #90 caps 10/03/23 03/03/24 03/03/24 Rx gabapentin 800 mg tablet 800 mg PO TID 90 days #270 tabs 10/03/23 03/03/24 03/03/24 Rx ketoconazole 2 % shampoo 1 applic topical .weekly #120 mL 10/03/23 03/02/24 Unknown Rx amitriptyline 100 mg tablet 100 mg PO DAILY 90 days #90 tabs 10/09/23 03/03/24 03/02/24 Rx zolpidem 10 mg tablet 10 mg PO .bedtime PRN insomnia #10 12/01/23 03/02/24 Unknown Rx tabs pregabalin 75 mg capsule (Lyrica) 75 mg PO BID pain 30 days #60 caps 12/19/23 03/03/24 03/03/24 Rx pantoprazole 40 mg tablet,delayed 40 mg PO BID 6 weeks #84 tabs 01/02/24 03/02/24 03/02/24 Rx release (Protonix) albuterol sulfate 90 mcg/actuation 2 inh inhalation QID PRN Shortness 03/02/24 03/02/24 Unknown History aerosol inhaler Of Breath Or Wheezing lamotrigine 100 mg tablet 100 mg PO BID 03/02/24 03/03/24 03/03/24 History levothyroxine 150 mcg tablet 150 mcg PO DAILY 03/02/24 03/03/24 03/03/24 History nystatin 100,000 unit/gram topical 1 applic topical BID PRN Rash 03/02/24 03/02/24 Unknown History cream zinc 1 tab PO DAILY 03/02/24 03/02/24 03/02/24 History Allergies Allergy/AdvReac Type Severity Reaction Status Date / Time chlorhexidine Allergy break out Verified 03/02/24 09:26 morphine Allergy sweaty, Verified 03/02/24 09:26 itching Current Medications Generic Name Dose Route Start Last Admin Trade Name Freq PRN Reason Stop Dose Admin Sodium Chloride 1,000 mls @ 30 mls/hr 03/03/24 10:00 03/03/24 10:13 Sodium Chloride 0.9% IV 03/04/24 09:59 30 mls/hr .Q24H THADDEUS Administration PFSH Anesthesia Medical History (Updated 01/02/24 @ 08:58 by Prieto Wilcox DO) History of gastric ulcer Medical marijuana use Degenerative disk disease Chronic insomnia GERD (gastroesophageal reflux disease) Hx of GI bleed, possible ulcer. Hypothyroidism Seizure SAVITA (generalized anxiety disorder) Major depression Chronic anemia Presence of neurostimulator Complex regional pain syndrome Stage 3 chronic kidney disease Surgical History History of partial nephrectomy left History of implanted electronic device spinal cord stimulator placed 09/2007 in [facility] Hx of decompression of ulnar nerve done bilat arms Hx of hysterectomy Hx of carpal tunnel repair Bilateral done in [facility] History of ankle surgery left ankle has 3 screws Hx of section x2 Hx of cholecystectomy History of appendectomy Status post biopsy of kidney History of bilateral knee replacement H/O gastric bypass Family History Mother Cancer Kidney and lung Father Degenerative disc disease Non-Hodgkin lymphoma Social History Smoking and tobacco/nicotine status: never used tobacco/nicotine Alcohol intake: never Substance/Drug Use: current Lives independently: Yes Female Reproductive History Spontaneous abortions: No Data Anesthesia Cardiac Studies: No Data to Display
--- NOTE | 2024-03-03 11:53 | P.HP_ITS ---
Providers/Chief Complaint Primary Care Provider: Winter Chavarria MD Chief Complaint: D64.9, D50.9, K21.9, Z86.19, Z87.11 History of Present Illness Purnima Sewell is a 63 year old female Review of Systems General: Reports: 10 or more systems reviewed and unremarkable except in HPI and below Medications/Allergies Home Medications Medication Instructions Recorded Confirmed Last Taken Type mecobalamin (vitamin B12) 1,000 1,000 mcg PO DAILY 05/05/20 03/02/24 03/02/24 History mcg chewable tablet (B12 Active) iron,carbonyl 65 mg-vitamin C 125 1 tab PO DAILY 90 days #90 tabs 02/20/22 03/02/24 03/02/24 Rx mg tablet,delayed release (Vitron-C) MARIJUANA 10/03/22 01/02/24 Unknown History spinal stemulator remote #1 ea 08/26/23 01/02/24 Unknown Rx spinal stimulator remote #1 ea 08/26/23 01/02/24 Unknown Rx non articulating spectrum AFO with #1 ea 09/08/23 01/02/24 Unknown Rx extra depth orthopedic shoes fluoxetine 20 mg capsule (Prozac) 20 mg PO DAILY 90 days #90 caps 10/03/23 03/03/24 03/03/24 Rx gabapentin 800 mg tablet 800 mg PO TID 90 days #270 tabs 10/03/23 03/03/24 03/03/24 Rx ketoconazole 2 % shampoo 1 applic topical .weekly #120 mL 10/03/23 03/02/24 Unknown Rx amitriptyline 100 mg tablet 100 mg PO DAILY 90 days #90 tabs 10/09/23 03/03/24 03/02/24 Rx zolpidem 10 mg tablet 10 mg PO .bedtime PRN insomnia #10 12/01/23 03/02/24 Unknown Rx tabs pregabalin 75 mg capsule (Lyrica) 75 mg PO BID pain 30 days #60 caps 12/19/23 03/03/24 03/03/24 Rx pantoprazole 40 mg tablet,delayed 40 mg PO BID 6 weeks #84 tabs 01/02/24 03/02/24 03/02/24 Rx release (Protonix) albuterol sulfate 90 mcg/actuation 2 inh inhalation QID PRN Shortness 03/02/24 03/02/24 Unknown History aerosol inhaler Of Breath Or Wheezing lamotrigine 100 mg tablet 100 mg PO BID 03/02/24 03/03/24 03/03/24 History levothyroxine 150 mcg tablet 150 mcg PO DAILY 03/02/24 03/03/24 03/03/24 History nystatin 100,000 unit/gram topical 1 applic topical BID PRN Rash 03/02/24 03/02/24 Unknown History cream zinc 1 tab PO DAILY 03/02/24 03/02/24 03/02/24 History Allergies Allergy/AdvReac Type Severity Reaction Status Date / Time chlorhexidine Allergy break out Verified 03/02/24 09:26 morphine Allergy sweaty, Verified 03/02/24 09:26 itching PFSH Acute PFSH: Medical History (Updated 03/03/24 @ 11:53 by Prieto Wilcox DO) History of gastric ulcer Medical marijuana use Degenerative disk disease Chronic insomnia GERD (gastroesophageal reflux disease) Hx of GI bleed, possible ulcer. Hypothyroidism Seizure SAVITA (generalized anxiety disorder) Major depression Chronic anemia Presence of neurostimulator Complex regional pain syndrome Stage 3 chronic kidney disease Surgical History History of partial nephrectomy left History of implanted electronic device spinal cord stimulator placed 09/2007 in [facility] Hx of decompression of ulnar nerve done bilat arms Hx of hysterectomy Hx of carpal tunnel repair Bilateral done in [facility] History of ankle surgery left ankle has 3 screws Hx of section x2 Hx of cholecystectomy History of appendectomy Status post biopsy of kidney History of bilateral knee replacement H/O gastric bypass Family History Mother Cancer Kidney and lung Father Degenerative disc disease Non-Hodgkin lymphoma Social History Smoking and tobacco/nicotine status: never used tobacco/nicotine Alcohol intake: never Substance/Drug Use: current Lives independently: Yes Female Reproductive History: Spontaneous abortions: No Vitals/I&O/Wt Last Vital Signs Temp 97.9 F 03/03/24 10:02 Pulse 95 03/03/24 10:02 Resp 16 03/03/24 10:02 BP 124/87 03/03/24 10:02 Pulse Ox 98 03/03/24 10:02 O2 Del Method Room Air 03/03/24 10:02 Weight last 48 hrs Weight 270 lb A&P Assessment and plan (1) GERD (gastroesophageal reflux disease): Qualifiers: Esophagitis presence: without esophagitis Qualified Code(s): K21.9 - Gastro-esophageal reflux disease without esophagitis (2) History of Helicobacter pylori infection: (3) History of gastric ulcer: (4) Family history of colon cancer: (5) Iron deficiency anemia: Plan EGD and colonoscopy Attestations Medical Necessity Statement*: Home Coding Level of Care Code Acute Code for Chg Fwd Diagnoses Gastroesophageal reflux disease without esophagitis K21.9 Esophagitis presence: without esophagitis History of Helicobacter pylori infection Z86.19 History of gastric ulcer Z87.11 Family history of colon cancer Z80.0 Iron deficiency anemia D50.9
[2024-03-03] MEDS: EPINEPHrine 1 mg/mL INJ XX (12:00)
[2024-03-03 12:27] VITALS: BP 147/82; PULSE 75; RESP 18; TEMP 36.3; O2SAT 100
[2024-03-03 12:40] VITALS: BP 136/76; PULSE 84; RESP 16; O2SAT 99
--- NOTE | 2024-03-03 13:03 | ANE.PACU2 ---
Inpatient post-anesthesia follow up: Airway intact: Yes Vital signs: Temperature 97.4 F Pulse Rate 84 Respiratory Rate 16 Blood Pressure 136/76 Pulse Oximetry 99 Oxygen Delivery Me thod Room Air Oxygen Flow Rate Fraction of Inspir ed Oxygen Hydration adequate: Yes Nausea and vomiting: No Pain level: 1 Mental status: Baseline
== END 2024-03-03 13:03 | disposition home or self-care (01) ==
PROVIDERS: PCP Family Medicine; Visit Provider Surgery
PROC: 0DJ08ZZ Inspection of Upper Intestinal Tract, Via Natural or Artificial Opening Endoscopic (ICD-10-PCS; CPT 43235; principal; 2024-03-03 11:15)
PROC: 0DJD8ZZ Inspection of Lower Intestinal Tract, Via Natural or Artificial Opening Endoscopic (ICD-10-PCS; CPT 45378; 2024-03-03 11:15)
DX: Z12.11 Encounter for screening for malignant neoplasm of colon (principal); D12.5 Benign neoplasm of sigmoid colon; K29.70 Gastritis, unspecified, without bleeding; D64.9 Anemia, unspecified; D50.9 Iron deficiency anemia, unspecified; K21.9 Gastro-esophageal reflux disease without esophagitis; Z86.19 Personal history of other infectious and parasitic diseases; Z87.11 Personal history of peptic ulcer disease; Z85.528 Personal history of other malignant neoplasm of kidney; N18.30 Chronic kidney disease, stage 3 unspecified; E03.9 Hypothyroidism, unspecified
CPT/HCPCS: 43239; 45385; 88305; J0171; J2704; J7030

== ENCOUNTER 2024-03-22 12:01 | Oncology outpatient (recurring) (ONCR) | payer MEDICARE, SELFPAY ==
[2024-03-22 12:27] LABS: Basophils # 0.1 10^3/uL (0.0-0.1); Basophils % 0.7 %; Eosinophils # 0.2 10^3/uL (0.0-0.8); Eosinophils % 3.1 %; Hematocrit 36.2 % (36-47); Lymphocytes # 1.7 10^3/uL (0.8-4.8); Lymphocytes % 24.6 %; Mean Corpuscular Hemoglobin 31.8 pg (27-33); Mean Corpuscular Volume 99.2 fl (85-98); Monocytes # 0.5 10^3/uL (0.2-0.9); Neutrophils # 4.27 10^3/uL (1.8-7.7); Neutrophils % 63.5 %; Nucleated Red Blood Cells % 0 %; Platelet Count 274 10^3/cmm (157-399); Red Blood Count 3.65 10^6/uL (3.85-5.65); Red Cell Distribution Width 13.3 % (12.1-15.1); White Blood Count 6.74 10^3/uL (3.29-11.43)
[2024-03-22 13:07] LABS: Alanine Aminotransferase 23 U/L (0-33); Alkaline Phosphatase 137 U/L (35-105); Aspartate Amino Transferase 20 U/L (0-32); Blood Urea Nitrogen 22 mg/dL (8-23); Calcium 8.9 mg/dL (8.5-10.5); Carbon Dioxide 24 mmol/L (22-29); Chloride 104 mmol/L (98-107); Ferritin 38 ng/mL (15-150); Globulin 2.2 g/dL (1.3-4.6); Glucose 92 mg/dL (65-115); Iron 80 ug/dL (37-145); Osmolality Calculated 293 mOsm/kg (285-295); Percent Saturation 23.5 % (20-50); Sodium 140 mmol/L (136-145); Total Bilirubin 0.3 mg/dL (0.15-1.2); Total Iron Binding Capacity 340 mcg/dl; Total Protein 6.2 g/dL (6.6-8.7); Unsaturated Iron Binding 260 ug/dL (112-347)
[2024-03-22 13:09] LABS: Anion Gap 17.2 (5-19); Potassium 5.2 mmol/L (3.5-5.1)
== END 2024-04-12 23:59 | disposition home or self-care (01) ==
PROVIDERS: Internal Medicine; PCP Family Medicine; Visit Provider Internal Medicine Medical Oncology
DX: D63.1 Anemia in chronic kidney disease; N18.30 Chronic kidney disease, stage 3 unspecified; F33.0 Major depressive disorder, recurrent, mild; Z87.891 Personal history of nicotine dependence; Z85.528 Personal history of other malignant neoplasm of kidney
CPT/HCPCS: 36415; 80053; 82728; 83540; 83550; 85025; 99214

== ENCOUNTER 2024-04-09 15:45 | Outpatient (CLI) | payer MEDICARE, SELFPAY ==
[2024-04-09 16:04] LABS: Hematocrit 38.3 % (36-47); Mean Corpuscular HGB Conc 31.6 g/dL (30-55); Mean Corpuscular Hemoglobin 32.1 pg (27-33); Mean Corpuscular Volume 101.6 fl (85-98); Platelet Count 245 10^3/cmm (157-399); Red Blood Count 3.77 10^6/uL (3.85-5.65); Red Cell Distribution Width 13.3 % (12.1-15.1)
[2024-04-09 16:27] LABS: Creatinine Urine, Random 53 mg/dL (28-217); Microalbum Creatinine Ratio Ur 19 mg/dL (0-20); Microalbumin Random Urine 1 ug/dL (0-20)
[2024-04-09 16:31] LABS: Total Cells Counted 100 (0-100)
[2024-04-09 16:34] LABS: Absolute Eosinophils 0.3 10^3/cmm (0.0-0.7); Absolute Segmented Neutrophil 4.8 10/cmm (1.6-7.1); Eosinophils 4 %; Lymphocytes 23 %; Lymphocytes Absolute 1.8 10^3/cmm (1.2-3.4); Monocytes Absolute 0.2 10^3/cmm (0.1-0.6); Segmented Neutrophils 68 %
[2024-04-09 16:35] LABS: Absolute Neutrophil 4.8 10^3/cmm (1.4-6.5); Anisocytosis Trace; Giant Platelets Trace; Platelet Estimate Normal (Normal)
[2024-04-09 16:46] LABS: Anion Gap 12.3 (5-19); Blood Urea Nitrogen 26 mg/dL (8-23); Calcium 8.9 mg/dL (8.5-10.5); Carbon Dioxide 30 mmol/L (22-29); Chloride 102 mmol/L (98-107); Ferritin 45 ng/mL (15-150); Folate Level 11.5 ng/mL (4.8-37.3); Glucose 109 mg/dL (65-115); Iron 61 ug/dL (37-145); Percent Saturation 17.3 % (20-50); Phosphorus 3.4 mg/dL (2.5-4.5); Potassium 5.3 mmol/L (3.5-5.1); Sodium 139 mmol/L (136-145); Total Iron Binding Capacity 352 mcg/dl; Unsaturated Iron Binding 291 ug/dL (112-347)
[2024-04-09 17:08] LABS: Vitamin B12 > 2000 pg/mL (232-1245)
== END 2024-04-09 15:46 | disposition home or self-care (01) ==
LOC: LAB 15:48
PROVIDERS: PCP Family Medicine; Visit Provider Internal Medicine
DX: N18.30 Chronic kidney disease, stage 3 unspecified (principal); Z90.5 Acquired absence of kidney
CPT/HCPCS: 36415; 80069; 82044; 82607; 82728; 82746; 83540; 83550; 85007; 85027

== ENCOUNTER 2024-04-13 06:30 | Outpatient (RCR) | payer MEDICARE, SELFPAY | END 2024-05-13 23:59 | disposition home or self-care (01) | LOC: MPT 06:30 | PROVIDERS: PCP Family Medicine; Visit Provider Family Medicine | DX: M54.9 Dorsalgia, unspecified (principal); G89.29 Other chronic pain | CPT/HCPCS: 97110; 97140; 97162 ==

== ENCOUNTER 2024-05-14 06:00 | Outpatient (RCR) | payer MEDICARE, SELFPAY | END 2024-06-12 23:59 | disposition home or self-care (01) | LOC: MPT 06:00 | PROVIDERS: PCP Family Medicine; Visit Provider Family Medicine | DX: M54.9 Dorsalgia, unspecified (principal); G89.29 Other chronic pain | CPT/HCPCS: 97110; 97140 ==

== ENCOUNTER 2024-06-21 10:52 | Oncology outpatient (recurring) (ONCR) | payer MEDICARE, SELFPAY ==
[2024-06-21 11:14] LABS: Basophils # 0.1 10^3/uL (0.0-0.1); Basophils % 0.8 %; Eosinophils # 0.2 10^3/uL (0.0-0.8); Eosinophils % 3.4 %; Hematocrit 36.5 % (36-47); Lymphocytes # 1.5 10^3/uL (0.8-4.8); Mean Corpuscular HGB Conc 31.8 g/dL (30-55); Mean Corpuscular Hemoglobin 32.9 pg (27-33); Mean Corpuscular Volume 103.4 fl (85-98); Mean Platelet Volume 9.5 fL (7.4-10.4); Monocytes # 0.5 10^3/uL (0.2-0.9); Neutrophils # 3.86 10^3/uL (1.8-7.7); Neutrophils % 62.6 %; Nucleated Red Blood Cells % 0 %; Platelet Count 234 10^3/cmm (157-399); Red Blood Count 3.53 10^6/uL (3.85-5.65); White Blood Count 6.16 10^3/uL (3.29-11.43)
[2024-06-21 11:38] LABS: Alanine Aminotransferase 27 U/L (0-33); Albumin Level 3.9 g/dL (3.5-5.2); Alkaline Phosphatase 132 U/L (35-105); Anion Gap 13.9 (5-19); Aspartate Amino Transferase 20 U/L (0-32); Blood Urea Nitrogen 27 mg/dL (8-23); Carbon Dioxide 28 mmol/L (22-29); Chloride 99 mmol/L (98-107); Creatinine Clr Calc Pharmacy 70.7005; Globulin 2.6 g/dL (1.3-4.6); Glomerular Filtration Rate 50.2 mL/min (90-130); Glucose 84 mg/dL (65-115); Osmolality Calculated 286 mOsm/kg (285-295); Potassium 4.9 mmol/L (3.5-5.1); Sodium 136 mmol/L (136-145); Total Bilirubin 0.2 mg/dL (0.15-1.2); Total Protein 6.5 g/dL (6.6-8.7)
[2024-06-21 13:30] LABS: Ferritin 54 ng/mL (15-150); Iron 66 ug/dL (37-145); Percent Saturation 20.6 % (20-50); Total Iron Binding Capacity 319 mcg/dl; Unsaturated Iron Binding 253 ug/dL (112-347)
== END 2024-07-13 23:59 | disposition home or self-care (01) ==
PROVIDERS: Nurse Practitioner Family; PCP Family Medicine; Visit Provider Internal Medicine Medical Oncology
DX: C64.2 Malignant neoplasm of left kidney, except renal pelvis (principal); N18.30 Chronic kidney disease, stage 3 unspecified; D50.9 Iron deficiency anemia, unspecified; Z87.891 Personal history of nicotine dependence; Z85.528 Personal history of other malignant neoplasm of kidney
CPT/HCPCS: 36415; 80053; 82728; 83540; 83550; 85025; 99214

== ENCOUNTER 2024-07-15 12:36 | Outpatient (CLI) | payer MEDICARE, SELFPAY ==
--- NOTE | 2024-07-15 13:00 | MM_ITS ---
WS: [id number] BILATERAL SCREENING DIGITAL TOMOSYNTHESIS MAMMOGRAM WITH CAD HISTORY: annual screening COMPARISON: 09/20/2022, 08/13/2021, Bilateral CC and MLO views with tomosynthesis and synthetic mammography submitted. Computer aided det ection analyzed. Breast composition: There are scattered areas of fibroglandular density. No suspicious masses, microc alcifications or architectural distortion. Dense coarse calcification in the central RIGHT breast is probably calcified fibroadenoma. There are additional stable masses with no increase in size. MM/MM scr BI tomosynthesis [id number] IMPRESSION: BI-RADS: 2 - Benign. FOLLOW UP: 1 Year Follow-up
== END 2024-07-15 12:37 | disposition home or self-care (01) ==
LOC: RAD 12:40
PROVIDERS: PCP Family Medicine; Visit Provider Nurse Practitioner Family
DX: Z12.31 Encounter for screening mammogram for malignant neoplasm of breast (principal); R92.323 Mammographic fibroglandular density, bilateral breasts; R92.1 Mammographic calcification found on diagnostic imaging of breast
CPT/HCPCS: 77063; 77067

== ENCOUNTER 2024-08-11 14:37 | Outpatient (CLI) | payer MEDICARE, SELFPAY ==
--- NOTE | 2024-08-11 14:49 | XR_ITS ---
WS: [email or web address] Exam: XR hip RT 1V wo/w pel [id number] Date/Time of Exam: 08/11/2024 3:03 PM Reason For Exam: PAIN IN RIGHT HIP No fracture noted. End-stage osteoarthritis with [id number] articulation noted. Prominent osteophyt es along the lateral acetabulum as well as the femoral head. Unremarkable soft tissues. Intramedullar y cary partially visualized in the upper femur. XR/XR hip RT 1V wo/w pel [id number] IMPRESSION: 1. End-stage osteoarthritis of the RIGHT hip with upmo-bu-nooi articulation.
--- NOTE | 2024-08-11 14:49 | XR_ITS ---
WS: [email or web address] Exam: XR hip LT 1V wo/w pel [id number] Date/Time of Exam: 08/11/2024 3:03 PM Reason For Exam: PAIN IN LEFT HIP No fracture noted. Moderately advanced degenerative change of the joint compartment. Prominent osteop hyte along the lateral acetabulum. Unremarkable soft tissues. Neurostimulator pack seen in the latera l soft tissues along the hip. XR/XR hip LT 1V wo/w pel [id number] IMPRESSION: 1. Moderately advanced osteoarthritis.
--- NOTE | 2024-08-11 14:49 | XR_ITS ---
WS: [email or web address] Exam: XR thoracic spine 2V [id number] Date/Time of Exam: 08/11/2024 3:03 PM Reason For Exam: SPINAL CORD STIMULATOR STATUS No fracture or malalignment. There is spondylosis and mild levoscoliosis of the lower T-spine. Neuros timulator electrodes in the lower thoracic spinal canal. Unremarkable paraspinal soft tissues. XR/XR thoracic spine 2V [id number] IMPRESSION: 1. Moderate degenerative changes. Mild levoscoliosis. 2. No fracture or malalignment. 3. Neurostimulator electrodes in the lower thoracic spinal canal. The leads go ear to be intact.
== END 2024-08-11 14:38 | disposition home or self-care (01) ==
LOC: RAD 14:43
PROVIDERS: PCP Family Medicine; Visit Provider Student in an Organized Health Care Education/Training Program
DX: M16.0 Bilateral primary osteoarthritis of hip (principal); Z96.89 Presence of other specified functional implants; M47.894 Other spondylosis, thoracic region; M41.84 Other forms of scoliosis, thoracic region; M25.751 Osteophyte, right hip; M25.752 Osteophyte, left hip
CPT/HCPCS: 72070; 73501

== ENCOUNTER → 2024-08-13 10:07 | Outpatient (BNVA) | payer MEDICARE, SELFPAY | PROVIDERS: PCP Family Medicine; Visit Provider Internal Medicine | DX: N18.30 Chronic kidney disease, stage 3 unspecified (principal) | CPT/HCPCS: 80069; 82043; 82607; 82728; 82746; 83540; 83550; 85025 ==

== ENCOUNTER → 2024-08-24 14:09 | Outpatient (BNVA) | payer MEDICARE, SELFPAY | PROVIDERS: PCP Family Medicine; Visit Provider Family Medicine | DX: E03.9 Hypothyroidism, unspecified (principal); N18.30 Chronic kidney disease, stage 3 unspecified; E87.6 Hypokalemia | CPT/HCPCS: 80048; 80061; 84439; 84443; 84481 ==

== ENCOUNTER → 2024-09-13 09:55 | Outpatient (BNVA) | payer MEDICARE, SELFPAY | PROVIDERS: PCP Family Medicine; Visit Provider Nurse Practitioner | DX: M25.551 Pain in right hip (principal); M25.552 Pain in left hip; M16.0 Bilateral primary osteoarthritis of hip; Z98.890 Other specified postprocedural states; Z87.81 Personal history of (healed) traumatic fracture; Z68.43 Body mass index [BMI] 50.0-59.9, adult; Z86.14 Personal history of Methicillin resistant Staphylococcus aureus infection | CPT/HCPCS: 73523; 99205 ==

== ENCOUNTER 2024-09-22 07:43 | Outpatient (CLI) | payer MEDICARE, SELFPAY ==
--- NOTE | 2024-09-22 08:00 | NM_ITS ---
WS: [id number] THREE-PHASE BONE SCAN HISTORY: FEMUR ORIF. planning YOAV COMPARISON: Radiograph 09/13/2024 Patient is is injected with 25.6 mCi Tc99m HDP intravenously. Immediate angiographic phase imaging is performed over the area of concern. Static blood pool imaging also performed. Two-hour whole-body scintigrams performed in anterior and posterior projections. Additional large field of view imaging sub mitted as necessary. Angiographic phase and blood pool phase imaging is normal. Moderate increased uptake involving the RIGHT acetabulum and RIGHT femoral head. This corresponds to advanced osteoarthritis on recent radiograph. Additional increased uptake at the L5-S1 disc space from osteoarthritis. Bilateral moderate to severe AC joint and glenohumeral joint arthritis. Intense uptake at the ankles bilaterally from arthritis. No spine or rib abnormalities otherwise. Normal soft tissue uptake within the kidneys. NM/NM bone 3 phase [id number] IMPRESSION: 1. Moderate osteoarthritis at the RIGHT hip joint. Corresponds to the RIGHT hi p radiograph findings on 09/13/2024. 2. Advanced degenerative joint disease involving the AC joints, glenohumeral j oints and ankles. 3. Degenerative disc disease at L5-S1.
== END 2024-09-22 07:44 | disposition home or self-care (01) ==
LOC: RAD 07:44
PROVIDERS: PCP Family Medicine; Visit Provider Nurse Practitioner
DX: M16.0 Bilateral primary osteoarthritis of hip (principal); Z98.890 Other specified postprocedural states; Z87.81 Personal history of (healed) traumatic fracture; M19.012 Primary osteoarthritis, left shoulder; M19.011 Primary osteoarthritis, right shoulder; M19.072 Primary osteoarthritis, left ankle and foot; M19.071 Primary osteoarthritis, right ankle and foot; M51.379 Other intervertebral disc degeneration, lumbosacral region without mention of lumbar back pain or lower extremity pain
CPT/HCPCS: 78315; A9561

== ENCOUNTER 2024-09-28 12:25 | Oncology outpatient (recurring) (ONCR) | payer MEDICARE, SELFPAY ==
[2024-09-28 13:00] LABS: Basophils # 0.1 10^3/uL (0.0-0.1); Basophils % 0.7 %; Eosinophils # 0.4 10^3/uL (0.0-0.8); Eosinophils % 4.2 %; Hematocrit 38.3 % (36-47); Lymphocytes # 1.6 10^3/uL (0.8-4.8); Lymphocytes % 19.1 %; Mean Corpuscular HGB Conc 31.3 g/dL (30-55); Mean Corpuscular Hemoglobin 32.5 pg (27-33); Mean Corpuscular Volume 103.8 fl (85-98); Mean Platelet Volume 10.1 fL (7.4-10.4); Monocytes # 0.6 10^3/uL (0.2-0.9); Monocytes % 6.6 %; Neutrophils # 5.71 10^3/uL (1.8-7.7); Nucleated Red Blood Cells % 0 %; Platelet Count 275 10^3/cmm (157-399); Red Blood Count 3.69 10^6/uL (3.85-5.65); Red Cell Distribution Width 12.6 % (12.1-15.1); White Blood Count 8.28 10^3/uL (3.29-11.43)
[2024-09-28 13:23] LABS: Alanine Aminotransferase 12 U/L (0-33); Albumin Level 3.9 g/dL (3.5-5.2); Alkaline Phosphatase 144 U/L (35-105); Aspartate Amino Transferase 17 U/L (0-32); Blood Urea Nitrogen 14 mg/dL (8-23); Calcium 9.1 mg/dL (8.5-10.5); Carbon Dioxide 22 mmol/L (22-29); Chloride 105 mmol/L (98-107); Ferritin 92 ng/mL (15-150); Globulin 2.5 g/dL (1.3-4.6); Glucose 161 mg/dL (65-115); Iron 47 ug/dL (37-145); Osmolality Calculated 296 mOsm/kg (285-295); Percent Saturation 15.2 % (20-50); Sodium 141 mmol/L (136-145); Total Bilirubin 0.2 mg/dL (0.15-1.2); Total Iron Binding Capacity 308 mcg/dl; Total Protein 6.4 g/dL (6.6-8.7); Unsaturated Iron Binding 261 ug/dL (112-347)
[2024-09-28 13:25] LABS: Anion Gap 18.4 (5-19); Potassium 4.4 mmol/L (3.5-5.1)
== END 2024-10-11 23:59 | disposition home or self-care (01) ==
PROVIDERS: Nurse Practitioner Family; PCP Family Medicine; Visit Provider Internal Medicine Medical Oncology
DX: D50.9 Iron deficiency anemia, unspecified (principal); N18.30 Chronic kidney disease, stage 3 unspecified; Z85.520 Personal history of malignant carcinoid tumor of kidney; Z87.891 Personal history of nicotine dependence; Z90.5 Acquired absence of kidney
CPT/HCPCS: 36415; 80053; 82728; 83540; 83550; 85025; 99214

== ENCOUNTER → 2024-10-18 15:32 | Outpatient (BNVA) | payer MEDICARE, SELFPAY | PROVIDERS: PCP Family Medicine; Visit Provider Nurse Practitioner | DX: M16.0 Bilateral primary osteoarthritis of hip (principal); Z96.9 Presence of functional implant, unspecified; Z98.890 Other specified postprocedural states; Z87.81 Personal history of (healed) traumatic fracture; Z68.43 Body mass index [BMI] 50.0-59.9, adult; Z86.14 Personal history of Methicillin resistant Staphylococcus aureus infection; N18.30 Chronic kidney disease, stage 3 unspecified; Z87.891 Personal history of nicotine dependence | CPT/HCPCS: 73552; 99214 ==

== ENCOUNTER 2024-11-30 10:22 | Oncology outpatient (recurring) (ONCR) | payer MEDICARE, SELFPAY ==
[2024-11-30 10:49] LABS: Basophils # 0.1 10^3/uL (0.0-0.1); Basophils % 0.9 %; Eosinophils # 0.3 10^3/uL (0.0-0.8); Eosinophils % 4.8 %; Hematocrit 38.5 % (36-47); Lymphocytes # 1.3 10^3/uL (0.8-4.8); Lymphocytes % 23.4 %; Mean Corpuscular HGB Conc 31.7 g/dL (30-55); Mean Corpuscular Hemoglobin 32.4 pg (27-33); Mean Corpuscular Volume 102.1 fl (85-98); Mean Platelet Volume 10.2 fL (7.4-10.4); Monocytes # 0.5 10^3/uL (0.2-0.9); Monocytes % 9.3 %; Neutrophils # 3.43 10^3/uL (1.8-7.7); Neutrophils % 61.2 %; Nucleated Red Blood Cells % 0 %; Platelet Count 206 10^3/cmm (157-399); Red Blood Count 3.77 10^6/uL (3.85-5.65); Red Cell Distribution Width 12.5 % (12.1-15.1)
[2024-11-30 11:11] LABS: Alanine Aminotransferase 76 U/L (0-33); Albumin Level 3.9 g/dL (3.5-5.2); Alkaline Phosphatase 209 U/L (35-105); Anion Gap 15.7 (5-19); Aspartate Amino Transferase 30 U/L (0-32); Blood Urea Nitrogen 18 mg/dL (8-23); Calcium 9.4 mg/dL (8.5-10.5); Carbon Dioxide 24 mmol/L (22-29); Chloride 105 mmol/L (98-107); Ferritin 74 ng/mL (15-150); Globulin 2.5 g/dL (1.3-4.6); Glucose 92 mg/dL (65-115); Iron 59 ug/dL (37-145); Osmolality Calculated 292 mOsm/kg (285-295); Percent Saturation 18.7 % (20-50); Potassium 4.7 mmol/L (3.5-5.1); Sodium 140 mmol/L (136-145); Total Bilirubin 0.2 mg/dL (0.15-1.2); Total Iron Binding Capacity 314 mcg/dl; Total Protein 6.4 g/dL (6.6-8.7); Unsaturated Iron Binding 255 ug/dL (112-347)
[2024-11-30 11:12] LABS: Estmated Average Glucose 105; Hemoglobin A1C 5.3 % (4.0-6.0)
== END 2024-12-11 23:59 | disposition home or self-care (01) ==
PROVIDERS: Nurse Practitioner Family; PCP Family Medicine; Visit Provider Internal Medicine Medical Oncology
DX: D50.9 Iron deficiency anemia, unspecified (principal); N18.30 Chronic kidney disease, stage 3 unspecified; Z87.891 Personal history of nicotine dependence; Z85.528 Personal history of other malignant neoplasm of kidney; D63.1 Anemia in chronic kidney disease; Z13.1 Encounter for screening for diabetes mellitus; R73.9 Hyperglycemia, unspecified
CPT/HCPCS: 36415; 80053; 82728; 83036; 83540; 83550; 85025; 99214

== ENCOUNTER 2024-12-07 10:02 | Outpatient (CLI) | payer MEDICARE, SELFPAY ==
[2024-12-07 10:58] LABS: Bilirubin Urine Negative (Negative); Blood Urine Negative (Negative); Glucose Urine UA Negative (Normal); Ketones Urine Negative (Negative); Leukocyte Esterase Urine Trace (Negative); Nitrate Urine Negative (Negative); Protein Urine Negative (Negative); Specific Gravity, Urine 1.018 (1.005-1.030); Urine Appearance Clear (CLEAR); Urine Color Yellow (Yellow); pH Urine 5.5 (5-7)
[2024-12-07 10:59] LABS: Basophils # 0.1 10^3/uL (0.0-0.1); Basophils % 0.8 %; Eosinophils # 0.3 10^3/uL (0.0-0.8); Hematocrit 39.8 % (36-47); Lymphocytes # 1.8 10^3/uL (0.8-4.8); Lymphocytes % 23.9 %; Mean Corpuscular HGB Conc 31.7 g/dL (30-55); Mean Corpuscular Hemoglobin 31.9 pg (27-33); Mean Corpuscular Volume 100.8 fl (85-98); Mean Platelet Volume 10.2 fL (7.4-10.4); Monocytes # 0.6 10^3/uL (0.2-0.9); Monocytes % 7.6 %; Neutrophils # 4.71 10^3/uL (1.8-7.7); Neutrophils % 63.6 %; Nucleated Red Blood Cells % 0 %; Platelet Count 242 10^3/cmm (157-399); Red Blood Count 3.95 10^6/uL (3.85-5.65); Red Cell Distribution Width 12.3 % (12.1-15.1); White Blood Count 7.41 10^3/uL (3.29-11.43)
[2024-12-07 11:03] LABS: Add Urine Microscopic? YES; Bacteria Urine None Seen /hpf; RBC Urine 0-2 /hpf (0-2); Squamous Epithelial Cell Urine 0-5 /hpf (0-5); WBC Urine 0-5 /hpf (0-5)
[2024-12-07 11:17] LABS: Alanine Aminotransferase 28 U/L (0-33); Alkaline Phosphatase 200 U/L (35-105); Anion Gap 16.8 (5-19); Aspartate Amino Transferase 22 U/L (0-32); Blood Urea Nitrogen 27 mg/dL (8-23); Calcium 9.6 mg/dL (8.5-10.5); Carbon Dioxide 25 mmol/L (22-29); Chloride 103 mmol/L (98-107); Globulin 2.9 g/dL (1.3-4.6); Glomerular Filtration Rate 45.2 mL/min (90-130); Glucose 84 mg/dL (65-115); Osmolality Calculated 294 mOsm/kg (285-295); Potassium 4.8 mmol/L (3.5-5.1); Sodium 140 mmol/L (136-145); Total Bilirubin 0.3 mg/dL (0.15-1.2); Total Protein 6.9 g/dL (6.6-8.7)
== END 2024-12-07 10:03 | disposition home or self-care (01) ==
PROVIDERS: PCP Family Medicine; Visit Provider Nurse Practitioner
DX: Z01.818 Encounter for other preprocedural examination (principal)
CPT/HCPCS: 36415; 80053; 81001; 85025

== ENCOUNTER → 2024-12-14 07:56 | Outpatient (BNVA) | payer MEDICARE, SELFPAY | PROVIDERS: PCP Family Medicine; Visit Provider Family Medicine | DX: Z01.818 Encounter for other preprocedural examination (principal); I45.10 Unspecified right bundle-branch block | CPT/HCPCS: 93005 ==

== ENCOUNTER → 2025-02-15 14:40 | Outpatient (BNVA) | payer MEDICARE, SELFPAY | PROVIDERS: PCP Family Medicine; Visit Provider Family Medicine | DX: N18.30 Chronic kidney disease, stage 3 unspecified (principal); E03.9 Hypothyroidism, unspecified | CPT/HCPCS: 80069; 82043; 82306; 82310; 83970; 84443; 85025 ==

== ENCOUNTER 2025-03-04 11:11 | Oncology outpatient (recurring) (ONCR) | payer MEDICARE, SELFPAY ==
[2025-03-04 11:36] LABS: Hematocrit 36.4 % (36-47); Hemoglobin 11.70 g/dL (11.27-16.99); Mean Corpuscular HGB Conc 32.1 g/dL (30-55); Mean Corpuscular Hemoglobin 32.3 pg (27-33); Mean Corpuscular Volume 100.6 fl (85-98); Nucleated Red Blood Cells % 0 %; Platelet Count 225 10^3/cmm (157-399); Red Blood Count 3.62 10^6/uL (3.85-5.65); White Blood Count 7.30 10^3/uL (3.29-11.43)
[2025-03-04 11:54] LABS: Alanine Aminotransferase 22 U/L (0-33); Albumin Level 3.8 g/dL (3.5-5.2); Alkaline Phosphatase 162 U/L (35-105); Anion Gap 14.9 (5-19); Aspartate Amino Transferase 19 U/L (0-32); Blood Urea Nitrogen 23 mg/dL (8-23); Calcium 8.9 mg/dL (8.5-10.5); Carbon Dioxide 24 mmol/L (22-29); Chloride 99 mmol/L (98-107); Ferritin 145 ng/mL (15-150); Globulin 2.6 g/dL (1.3-4.6); Glucose 85 mg/dL (65-115); Iron 73 ug/dL (37-145); Osmolality Calculated 279 mOsm/kg (285-295); Potassium 4.9 mmol/L (3.5-5.1); Sodium 133 mmol/L (136-145); Total Iron Binding Capacity 250 mcg/dl; Total Protein 6.4 g/dL (6.6-8.7); Unsaturated Iron Binding 177 ug/dL (112-347)
== END 2025-03-13 23:59 | disposition home or self-care (01) ==
LOC: ONCMED 11:11
PROVIDERS: Nurse Practitioner Family; PCP Family Medicine; Visit Provider Internal Medicine Medical Oncology
DX: D50.9 Iron deficiency anemia, unspecified (principal); N18.30 Chronic kidney disease, stage 3 unspecified
CPT/HCPCS: 36415; 80053; 82728; 83540; 83550; 85025

== ENCOUNTER → 2025-03-18 10:47 | Outpatient (BNVA) | payer MEDICARE, SELFPAY | PROVIDERS: PCP Family Medicine; Visit Provider Internal Medicine | DX: E66.01 Morbid (severe) obesity due to excess calories (principal); Z68.43 Body mass index [BMI] 50.0-59.9, adult; R68.89 Other general symptoms and signs; M16.10 Unilateral primary osteoarthritis, unspecified hip; E03.9 Hypothyroidism, unspecified | CPT/HCPCS: 99214 ==

== ENCOUNTER → 2025-04-01 15:56 | Outpatient (BNVA) | payer MEDICARE, SELFPAY | PROVIDERS: PCP Family Medicine; Visit Provider Nurse Practitioner | DX: N39.0 Urinary tract infection, site not specified (principal) | CPT/HCPCS: 81000 ==

== ENCOUNTER 2025-04-22 11:38 | Emergency (ER) | payer MEDICARE, SELFPAY ==
[2025-04-22 11:45] VITALS: BP 107/59; PULSE 95; RESP 18; TEMP 36.8; O2SAT 98
--- NOTE | 2025-04-22 11:58 | XRR_ITS ---
PROCEDURE INFORMATION: Exam: XR Chest Exam date and time: 04/22/2025 1:06 PM Age: 64 years old Clinical indication: Pain; Chest pressure; Additional info: Weakness TECHNIQUE: Imaging protocol: Radiologic exam of the chest. Views: 1 view. COMPARISON: CR XR thoracic spine 2V [id number] 08/11/2024 3:06 PM FINDINGS: Lungs: No infiltrates. No suspicious masses or nodules. Pleural spaces: No pleural effusions or pneumothorax. Heart/Mediastinum: Heart size within normal limits. No pulmonary vascular congestion. Bones/joints: No significant osseous lesion. No fractures. Advanced osteoarthritic changes of the glenohumeral joints bilaterally. XR/XR chest 1V portable [id number] IMPRESSION: No acute cardiopulmonary findings radiographically.
--- NOTE | 2025-04-22 11:59 | ECG_ITS ---
[facility] Date: 2025-04-22 Pat Name: Purnima Sewell Department: Room: Gender: Female Software Development Project Manager: : 1960 Requested By: Angelica Medina Order Number: [id number] Reading MD: SHRAVAN POTTER Measurements Intervals Sawyer Rate: 96 P: 167 NM: 356 QRS: -1 QRSD: 97 T: 28 QT: 324 QTc: 410 Interpretive Statements Artifact not interpretable Electronically Signed On 04-24-2025 23:21:55 CDT by SHRAVAN POTTER [email or web address] [id number]
--- NOTE | 2025-04-22 12:44 | W.ED.GENADLT ---
HPI - General Adult General: Chief complaint: General Medical Stated complaint: Post surgery 04/13 Weakness Can't walk Time Seen by Provider: 04/22/25 12:27 History of Present Illness: 64-year-old female presents emergency room she is 10 days postop excision of hardware in her right femur. She had a fever sweats chills but she has noticed over the last couple days she is very tachycardic and shortness of breath with minimal exertion she usually uses a walker normally she is able to move around with a walker inside of her home she still is able to walk uses a walker to get to the bathroom but she says anything more than a few feet to and from the bathroom a few tries to go to another room she is excessively short of breath she is now she is get very tachycardic she denies any chest pain. Postoperatively she required several units of blood to be transfused due to anemia. She denies any hematemesis or coffee-ground emesis no melena. Associated symptoms: Reports dyspnea and palpitations; Deny chest pain or rash Related Data Home Medications ?Medication ?Instructions ?Recorded ?Confirmed MARIJUANA 10/03/22 04/22/25 pregabalin 100 mg capsule (Lyrica) 100 mg PO BID 08/24/24 04/22/25 acetaminophen 500 mg tablet 1,000 mg PO Q6H PRN Pain 04/22/25 04/22/25 ascorbic acid (vitamin C) 500 mg 500 mg PO DAILY 04/22/25 04/22/25 tablet (Vitamin C) aspirin 81 mg tablet,delayed 81 mg PO BID 04/22/25 04/22/25 release celecoxib 100 mg capsule 100 mg PO BID 04/22/25 04/22/25 cholecalciferol (vitamin D3) 125 125 mcg PO DAILY 04/22/25 04/22/25 mcg (5,000 unit) tablet (Vitamin D3) cyclobenzaprine 10 mg tablet 10 mg PO TID PRN Muscle Spasm 04/22/25 04/22/25 docusate sodium 100 mg capsule 100 mg PO BID 04/22/25 04/22/25 (Colace) latanoprost 0.005 % eye drops 1 drp ophthalmic (eye) QPM 04/22/25 04/22/25 metformin 500 mg tablet,extended 500 mg PO BID 04/22/25 04/22/25 release 24 hr oxycodone 5 mg tablet 5 mg PO Q4H PRN Pain 04/22/25 04/22/25 zinc sulfate 50 mg zinc (220 mg) 50 mg PO DAILY 04/22/25 04/22/25 tablet Previous Rx's ?Medication ?Instructions ?Recorded spinal stemulator remote #1 ea 08/26/23 spinal stimulator remote #1 ea 08/26/23 non articulating spectrum AFO with #1 ea 09/08/23 extra depth orthopedic shoes tramadol 50 mg tablet 50 mg PO BID pain 7 days #14 tabs 06/04/24 albuterol sulfate 2.5 mg/3 mL 2.5 mg (3 mL) inhalation QID PRN 09/08/24 (0.083 %) solution for nebulization shortness of breath or wheezing #75 mL iron,carbonyl 65 mg-vitamin C 125 1 tab PO BID 90 days #180 tabs 10/07/24 mg tablet,delayed release (Vitron-C) pantoprazole 40 mg tablet,delayed 40 mg PO BID 90 days #180 tabs 11/23/24 release (Protonix) zolpidem 10 mg tablet 10 mg PO .bedtime PRN insomnia #10 12/30/24 tabs amitriptyline 100 mg tablet 100 mg PO DAILY 90 days #90 tabs 02/15/25 duloxetine 30 mg capsule,delayed 30 mg PO BID 30 days #60 caps 02/15/25 release lamotrigine 100 mg tablet 100 mg PO BID 90 days #180 tabs 02/15/25 levothyroxine 150 mcg tablet See Rx Instructions .Route 03/18/25 .COMPLEX #90 tabs liraglutide 0.6 mg/0.1 mL (18 mg/3 1.8 mg (0.3 mL) SUBCUT DAILY #9 mL 03/18/25 mL) subcutaneous pen injector (Victoza 3-Moody) apixaban 5 mg (74 tabs) tablets in See Rx Instructions PO .COMPLEX 04/22/25 a dose pack (Eliquis DVT-PE Treat #74 ea 30D Start) cefdinir 300 mg capsule 300 mg PO BID #14 caps 04/22/25 Allergies Allergy/AdvReac Type Severity Reaction Status Date / Time chlorhexidine Allergy break out Verified 04/01/25 14:17 morphine Allergy sweaty, Verified 04/01/25 14:17 itching Review of Systems Const: Denies: fever(s) or chills Card: Reports: palpitations and dyspnea on exertion; Denies: chest pain Resp: Reports: dyspnea GI: Denies: abdominal pain : Denies: dysuria, urinary frequency or urinary urgency Musc: Denies: neck pain or back pain Skin/Breast: Denies: rash PFSH ED PFSH: Medical History Hip arthritis Morbid obesity with BMI of 50.0-59.9, adult Adult BMI 50.0-59.9 kg/sq m History of MRSA infection Bilateral primary osteoarthritis of hip Family history of colon cancer History of Helicobacter pylori infection History of gastric ulcer Medical marijuana use Degenerative disk disease Chronic insomnia GERD (gastroesophageal reflux disease) Hx of GI bleed, possible ulcer. Hypothyroidism Seizure SAVITA (generalized anxiety disorder) Major depression Chronic anemia Presence of neurostimulator Complex regional pain syndrome Stage 3 chronic kidney disease Surgical History S/P ORIF (open reduction internal fixation) fracture LEFT DISTAL FEMUR ORIF. Outside facility Approximately 8-10 years ago. History of partial nephrectomy left History of implanted electronic device spinal cord stimulator placed 09/2007 in [facility] Hx of decompression of ulnar nerve done bilat arms Hx of hysterectomy Hx of carpal tunnel repair Bilateral done in [facility] History of ankle surgery left ankle has 3 screws Hx of section x2 Hx of cholecystectomy History of appendectomy Status post biopsy of kidney History of bilateral knee replacement H/O gastric bypass Family History Mother Cancer Kidney and lung Father Degenerative disc disease Non-Hodgkin lymphoma Social History Smoking and tobacco/nicotine status: never used tobacco/nicotine Alcohol intake: never Substance/Drug Use: current Lives independently: Yes Female Reproductive History: Spontaneous abortions: No Physical Exam Const: GENERAL APPEARANCE: cooperative ORIENTATION/CONSCIOUSNESS: Yes awake, Yes oriented to person, Yes oriented to place and Yes oriented to time HENMT: COMMON NORMALS: normocephalic, atraumatic and hearing grossly normal bilaterally HEAD & SCALP: normocephalic and atraumatic Resp: COMMON NORMALS: normal respiratory effort, No retractions, No use of accessory muscles and clear to auscultation bilaterally AUSCULTATION: clear to auscultation bilaterally Cardio: COMMON NORMALS: regular rate, regular rhythm and No murmurs present (Cardio) RATE: regular rate RHYTHM: regular rhythm GI: COMMON NORMALS: Soft to palpation and No hepatosplenomegaly present AUSCULTATION: Yes normoactive bowel sounds PALPATION: Yes Soft to palpation, No Tenderness to palpation present (GI), No Guarding due to palpation present (GI) and Yes No hepatosplenomegaly present Extremity: COMMON NORMALS: normal to inspection, capillary refill normal, no clubbing, cyanosis or edema, no calf tenderness and no pedal edema Neuro: SENSORIUM/ORIENTATION: Yes oriented to person, Yes oriented to place and Yes oriented to time Skin: COMMON NORMALS: no rashes or lesions noted GENERAL SKIN EXAM: no rashes or lesions noted Course Vital Signs: Vital signs: Vital Signs Temperature 98.2 F 04/22/25 11:45 Pulse Rate 88 04/22/25 17:00 Respiratory Rate 16 04/22/25 17:00 Blood Pressure 135/99 04/22/25 17:00 Pulse Oximetry 99 04/22/25 17:00 Oxygen Delivery Me thod Room Air 04/22/25 17:00 [facility] - General Adult Medical Decision Making Patient's hemoglobin is stable and improved from when she was discharged from the hospital for leg surgery. She is able to ambulate uses a walker was able to get to the bathroom and back. CTA shows subsegmental. Right sided PE. She was given Lovenox starter and Eliquis. No sign of pneumonia pneumothorax or widened mediastinum on chest x-ray no signs of acute coronary syndrome patient is anemic but does not require transfusion at this time. Will discharge home and have her follow-up with her surgeon as scheduled. Medical Records I reviewed the patient's medical records. Lab Data I reviewed the patient's lab results. 04/22/25 13:36 04/22/25 13:36 Radiology Impressions Chest X-Ray 04/22/25 11:58 IMPRESSION: No acute cardiopulmonary findings radiographically. Chest CTA 04/22/25 15:38 IMPRESSION: 1. Low burden short segment pulmonary embolus in a subsegmental branch supplying the right middle lobe. No other pulmonary emboli visualized bilaterally. 2. No evidence of right heart strain. 3. No evidence of aortic dissection. 4. Significant hepatic steatosis. ADDENDUM: 04/22/25 6099 THIS REPORT CONTAINS FINDINGS THAT MAY BE CRITICAL TO PATIENT CARE. The findings were verbally communicated via telephone conference with EMILE LUNA at 5:19 PM CDT on 04/22/2025. The findings were acknowledged and understood. Laboratory Results WBC 7.28 10^3/uL (3.29-11.43) 04/22/25 13:36 RBC 2.54 10^6/uL (3.85-5.65) L 04/22/25 13:36 Hgb 8.30 g/dL (11.27-16.99) L 04/22/25 13:36 Hct 26.7 % (36-47) L 04/22/25 13:36 MCV 105.1 fl (85-98) H 04/22/25 13:36 MCH 32.7 pg (27-33) 04/22/25 13:36 MCHC 31.1 g/dL (30-55) 04/22/25 13:36 RDW 15.5 % (12.1-15.1) H 04/22/25 13:36 Plt Count 332 10^3/cmm (157-399) 04/22/25 13:36 MPV 9.1 fL (7.4-10.4) 04/22/25 13:36 Neut % (Auto) 71.7 % 04/22/25 13:36 Lymph % (Auto) 16.8 % 04/22/25 13:36 Adams % (Auto) 7.7 % 04/22/25 13:36 Eos % (Auto) 2.9 % 04/22/25 13:36 Baso % (Auto) 0.5 % 04/22/25 13:36 Neut # (Auto) 5.22 10^3/uL (1.8-7.7) 04/22/25 13:36 Lymph # (Auto) 1.2 10^3/uL (0.8-4.8) 04/22/25 13:36 Adams # (Auto) 0.6 10^3/uL (0.2-0.9) 04/22/25 13:36 Eos # (Auto) 0.2 10^3/uL (0.0-0.8) 04/22/25 13:36 Baso # (Auto) 0.0 10^3/uL (0.0-0.1) 04/22/25 13:36 Nucleated RBC % (auto) 0 % 04/22/25 13:36 Nucleated RBCs # 0.0 /100WBC 04/22/25 13:36 Sodium 140 mmol/L (136-145) 04/22/25 13:36 Potassium 4.4 mmol/L (3.5-5.1) 04/22/25 13:36 Chloride 105 mmol/L (98-107) 04/22/25 13:36 Carbon Dioxide 25 mmol/L (22-29) 04/22/25 13:36 Anion Gap 14.4 (5-19) 04/22/25 13:36 BUN 24 mg/dL (8-23) H 04/22/25 13:36 Creatinine 1.4 mg/dL (0.5-0.9) H 04/22/25 13:36 GFR Calculation 37.9 mL/min (90-130) L 04/22/25 13:36 Glucose 83 mg/dL (65-115) 04/22/25 13:36 Calculated Osmolality 293 mOsm/kg (285-295) 04/22/25 13:36 Calcium 8.3 mg/dL (8.5-10.5) L 04/22/25 13:36 Total Bilirubin 0.4 mg/dL (0.15-1.2) 04/22/25 13:36 AST 19 U/L (0-32) 04/22/25 13:36 ALT 16 U/L (0-33) 04/22/25 13:36 Alkaline Phosphatase 198 U/L (35-105) H 04/22/25 13:36 Creatine Kinase 26 U/L (26-192) 04/22/25 13:36 Total Protein 5.2 g/dL (6.6-8.7) L 04/22/25 13:36 Albumin 2.8 g/dL (3.5-5.2) L 04/22/25 13:36 Globulin 2.4 g/dL (1.3-4.6) 04/22/25 13:36 Urine Color Yellow (Yellow) 04/22/25 14:04 Urine Appearance Cloudy (CLEAR) A 04/22/25 14:04 Urine pH 5.5 (5-7) 04/22/25 14:04 Ur Specific [place] 1.006 (1.005-1.030) 04/22/25 14:04 Urine Protein Negative (Negative) 04/22/25 14:04 Urine Glucose (UA) Negative (Normal) 04/22/25 14:04 Urine Ketones Negative (Negative) 04/22/25 14:04 Urine Blood 2+ (Negative) A 04/22/25 14:04 Urine Nitrate Positive (Negative) A 04/22/25 14:04 Urine Bilirubin Negative (Negative) 04/22/25 14:04 Urine Urobilinogen 1.0 mg/dL (Negative) 04/22/25 14:04 Ur Leukocyte Esterase 2+ (Negative) A 04/22/25 14:04 Urine RBC 0-4 /hpf (0-2) H 04/22/25 14:04 Urine WBC 15-25 /hpf (0-5) H 04/22/25 14:04 Ur Squamous Epith Cells 5-10 /hpf (0-5) H 04/22/25 14:04 Ur Transition Epith Cell 0-4 /hpf 04/22/25 14:04 Amorphous Sediment Not Reportable 04/22/25 14:04 Urine Bacteria 4+ /hpf (NONE) H 04/22/25 14:04 Hyaline Casts 0-4 /lpf H 04/22/25 14:04 Blood Type O Negative 04/22/25 14:53 Rho(D) Type Rh negative 04/22/25 14:53 Antibody Screen Negative 04/22/25 14:53 All radiology interpretation(s) finalized by discharge Discharge Plan Discharge Patient Disposition: Home Clinical Impression: Pulmonary embolism Condition: Stable Prescriptions: New Eliquis DVT-PE Treat 30D Start 5 mg (74 tabs) tablets,dose pack See Rx Instructions .ROUTE .COMPLEX Qty: 74 0RF Rx Instructions: orally per package directions cefdinir 300 mg capsule 300 mg PO BID Qty: 14 0RF No Action (DME) non articulating spectrum AFO with extra depth orthopedic shoes See Rx Instructions .Route .MEDSUPPLY Qty: 1 0RF Rx Instructions: As directed made by [facility] pantoprazole [Protonix] 40 mg tablet,delayed release (DR/EC) 40 mg PO BID 90 Days Qty: 180 3RF amitriptyline 100 mg tablet 100 mg PO DAILY 90 Days Qty: 90 2RF duloxetine 30 mg capsule,delayed release(DR/EC) 30 mg PO BID 30 Days Qty: 60 5RF lamotrigine 100 mg tablet 100 mg PO BID 90 Days Qty: 180 2RF levothyroxine 150 mcg tablet See Rx Instructions .ROUTE .COMPLEX Qty: 90 1RF Rx Instructions: Take 1 tablet Friday through Friday and one-half tablet on Friday. liraglutide [Victoza 3-Moody] 0.6 mg/0.1 mL (18 mg/3 mL) pen injector 1.8 mg SUBCUT DAILY Qty: 9 3RF (DME) MARIJUANA 0 .Route .MEDSUPPLY (DME) spinal stimulator remote See Rx Instructions .Route .MEDSUPPLY Qty: 1 0RF Rx Instructions: As directed (DME) spinal stemulator remote See Rx Instructions .Route .MEDSUPPLY Qty: 1 0RF Rx Instructions: As directed pregabalin [Lyrica] 100 mg capsule 100 mg PO BID albuterol sulfate 2.5 mg /3 mL (0.083 %) solution for nebulization 2.5 mg inhalation QID PRN (Reason: shortness of breath or wheezing) Qty: 75 0RF tramadol 50 mg tablet 50 mg PO BID 7 Days Qty: 14 0RF Vitron-C 65 mg iron- 125 mg tablet,delayed release (DR/EC) 1 tab PO BID 90 Days Qty: 180 1RF Rx Instructions: swallow whole; do not chew/break/dissolve/open zolpidem 10 mg tablet 10 mg PO .bedtime PRN (Reason: insomnia) Qty: 10 0RF latanoprost 0.005 % drops 1 drp ophthalmic (eye) QPM aspirin [Aspir-81] 81 mg Tablet,Delayed Release (Dr/Ec) 81 mg PO BID acetaminophen 500 mg Tablet 1,000 mg PO Q6H PRN (Reason: Pain) ascorbic acid (vitamin C) [Vitamin C] 500 mg Tablet 500 mg PO DAILY docusate sodium [Colace] 100 mg Capsule 100 mg PO BID celecoxib 100 mg capsule 100 mg PO BID oxycodone 5 mg tablet 5 mg PO Q4H PRN (Reason: Pain) cholecalciferol (vitamin D3) [Vitamin D3] 125 mcg (5,000 unit) Tablet 125 mcg PO DAILY zinc sulfate 50 mg zinc (220 mg) Tablet 50 mg PO DAILY cyclobenzaprine 10 mg tablet 10 mg PO TID PRN (Reason: Muscle Spasm) metformin 500 mg tablet extended release 24 hr 500 mg PO BID Discharge Orders: Discharge ED (Routine); Ordered 04/22/25 Ordered By: Emile Luna Referrals: Winter Chavarria MD [Primary Care Provider, Family Practice] Discharge Diet: Usual diet Discharge Activity: Increase activity as tolerated Patient Instructions: Pulmonary Embolism (ED), Opioid Safety, Pain Management, Patient Portal & Lauro Instructions Activity Restrictions/Additional Instructions: Thank you for choosing [facility] for your healthcare needs today. It is very important that you follow up as instructed or that you return to the Emergency Department should you have concerns or if your condition changes or worsens in any way. Emergency department visits are focused on emergent conditions, in some cases you may require further evaluation on an outpatient basis. You are seen in the emergency room complaining of rapid heart rate shortness of breath. Chest x-ray was normal and there is no sign of anemia. You did have a small pulmonary embolism you are given initial shot of blood thinner and discharged home with Eliquis to take as directed on the package. You should follow-up with your primary care doctor do not stop taking Eliquis until you are specifically told to by physician. (Please note that included in your discharge packet is information concerning opioid safety and pain management. This information is given to all patients were discharged from the ER regardless of their discharge diagnosis or the medicines they usually take or are prescribed.) Print Language: Dominican Coding Level of Care Code ED Dispatch Specialist for Adlo Gonzalez
[2025-04-22 12:54] VITALS: BP 143/73; PULSE 91; RESP 16; O2SAT 96
[2025-04-22 13:32] VITALS: PULSE 91; RESP 16; O2SAT 98
[2025-04-22 13:38] LABS: Hematocrit 26.7 % (36-47); Hemoglobin 8.30 g/dL (11.27-16.99); Mean Corpuscular HGB Conc 31.1 g/dL (30-55); Mean Corpuscular Hemoglobin 32.7 pg (27-33); Mean Corpuscular Volume 105.1 fl (85-98); Nucleated Red Blood Cells % 0 %; Platelet Count 332 10^3/cmm (157-399); Red Blood Count 2.54 10^6/uL (3.85-5.65); White Blood Count 7.28 10^3/uL (3.29-11.43)
[2025-04-22 13:57] LABS: Alanine Aminotransferase 16 U/L (0-33); Albumin Level 2.8 g/dL (3.5-5.2); Alkaline Phosphatase 198 U/L (35-105); Anion Gap 14.4 (5-19); Aspartate Amino Transferase 19 U/L (0-32); Blood Urea Nitrogen 24 mg/dL (8-23); Calcium 8.3 mg/dL (8.5-10.5); Carbon Dioxide 25 mmol/L (22-29); Chloride 105 mmol/L (98-107); Creatinine Clr Calc Pharmacy 48.3341; Globulin 2.4 g/dL (1.3-4.6); Glucose 83 mg/dL (65-115); Osmolality Calculated 293 mOsm/kg (285-295); Potassium 4.4 mmol/L (3.5-5.1); Sodium 140 mmol/L (136-145); Total Protein 5.2 g/dL (6.6-8.7)
[2025-04-22 14:14] LABS: Glucose Urine UA Negative (Normal); Nitrate Urine Positive (Negative); Specific Gravity, Urine 1.006 (1.005-1.030)
[2025-04-22 14:24] LABS: Add Urine Microscopic? YES; UA Manual Slide Review YES
[2025-04-22 14:32] VITALS: BP 142/104; PULSE 90; RESP 16; O2SAT 100
--- NOTE | 2025-04-22 15:38 | CTR_ITS ---
PROCEDURE INFORMATION: Exam: CTA Chest With Contrast Exam date and time: 04/22/2025 4:14 PM Age: 64 years old Clinical indication: Other: Dyspnea tachycardia with exertion TECHNIQUE: Imaging protocol: Computed tomographic angiography of the chest with contrast. Exam focused on the arteries. 3D rendering (Not supervised by radiologist): MIP and/or 3D reconstructed images were created by the technologist. Radiation optimization: All CT scans at this facility use at least one of these dose optimization techniques: automated exposure control; mA and/or kV adjustment per patient size (includes targeted exams where dose is matched to clinical indication); or iterative reconstruction. Contrast material: OMNI 350; Contrast volume: 89 ml; Contrast route: INTRAVENOUS (IV); COMPARISON: CR XR chest 1V portable [id number] 04/22/2025 1:06 PM RADIATION DOSE METRICS: Total DLP (mGy-cm): 499.64 FINDINGS: Tubes, catheters and devices: Spinal stimulator leads terminating within the spinal canal at the level of T7-T8. Pulmonary arteries: Low burden short segment pulmonary embolus in a subsegmental branch supplying the right middle lobe. No other pulmonary emboli visualized bilaterally. Aorta: Mild scattered atherosclerotic plaquing of the thoracic aorta. No aneurysm or dissection. Lungs: No infiltrates or lobar consolidation. Azygos lobe present. No suspiciuos pulmonary nodules or masses. Pleural spaces: No pleural effusions or pneumothorax. Heart: Heart size within normal limits. No pericardial effusions. Heart RV/LV ratio: RV/LV ratio of 0.88. Coronary arteries: No significant coronary artery calcifications. Lymph nodes: No significant mediastinal or hilar lymphadenopathy. Liver: Significant hepatic steatosis. Stomach: Postsurgical changes of gastric bypass surgery. Bones/joints: No significant focal osseous lesions. No fractures or malalignment. Bridging osteophytes at multiple contiguous levels consistent with diffuse idiopathic skeletal hyperostosis. Soft tissues: Unremarkable. CT/CT angio chest PE protcl [id number] IMPRESSION: 1. Low burden short segment pulmonary embolus in a subsegmental branch supplying the right middle lobe. No other pulmonary emboli visualized bilaterally. 2. No evidence of right heart strain. 3. No evidence of aortic dissection. 4. Significant hepatic steatosis.
[2025-04-22] MEDS: cefTRIAXone 1,000 mg SDV 1000 MG IVP (15:52)
[2025-04-22] MEDS: iohexol 350 mg/mL 500 mL Btl (per mL) IV (16:27)
[2025-04-22 17:00] VITALS: BP 135/99; PULSE 88; RESP 16; O2SAT 99
== END 2025-04-22 18:24 | disposition home or self-care (01) ==
PROVIDERS: Physician Assistant; Emergency Provider Family Medicine; PCP Family Medicine
DX: I26.99 Other pulmonary embolism without acute cor pulmonale (principal); Z79.82 Long term (current) use of aspirin; Z79.84 Long term (current) use of oral hypoglycemic drugs; N18.30 Chronic kidney disease, stage 3 unspecified
CPT/HCPCS: 71045; 71275; 80053; 81001; 82550; 85025; 86850; 86900; 87077; 87086; 87186; 93005; 96372; 96374; 99285; J0696; J1650

== ENCOUNTER → 2025-05-03 09:53 | Outpatient (BNVA) | payer MEDICARE, SELFPAY | PROVIDERS: PCP Family Medicine; Visit Provider Nurse Practitioner | DX: N39.0 Urinary tract infection, site not specified (principal) | CPT/HCPCS: 81000; 87086 ==

== ENCOUNTER → 2025-05-12 09:21 | Outpatient (BNVA) | payer MEDICARE, SELFPAY | PROVIDERS: PCP Family Medicine; Referring Provider Internal Medicine Endocrinology, Diabetes & Metabolism; Visit Provider Internal Medicine Endocrinology, Diabetes & Metabolism | DX: E03.9 Hypothyroidism, unspecified (principal); R68.89 Other general symptoms and signs | CPT/HCPCS: 84439; 84443 ==

== ENCOUNTER → 2025-05-16 14:21 | Outpatient (BNVA) | payer MEDICARE, SELFPAY | PROVIDERS: PCP Family Medicine; Visit Provider Nurse Practitioner | DX: D64.9 Anemia, unspecified (principal) | CPT/HCPCS: 85018 ==

== ENCOUNTER → 2025-06-08 11:04 | Outpatient (BNVA) | payer MEDICARE, SELFPAY | PROVIDERS: PCP Family Medicine; Visit Provider Family Medicine | DX: M25.511 Pain in right shoulder (principal); M19.011 Primary osteoarthritis, right shoulder | CPT/HCPCS: 73030 ==

== ENCOUNTER → 2025-06-27 14:46 | Outpatient (BNVA) | payer MEDICARE, SELFPAY | PROVIDERS: PCP Family Medicine; Visit Provider Nurse Practitioner | DX: M19.011 Primary osteoarthritis, right shoulder (principal) | CPT/HCPCS: 20610; 73030; 99204; J1100; J2795; J3301; J9999 ==